=== PATIENT | male | born 1960 | race African-American/Black ===

== ENCOUNTER 2020-03-19 09:46 | Emergency (ER) | payer MEDICAID, SELFPAY ==
[2020-03-19] MEDS ORDERED: AMLODIPINE 10 MG TAB ONE (10:57)
[2020-03-19 10:58] LABS: Absolute Lymphocytes (CBC) 1.4 K/uL (0.7-4.9); Basophils % 1.2 % (0-1.3); Hematocrit 39.7 % (39.6-49.0); Lymphocytes % 21.9 % (15.3-44.8); MPV 9.1 fL (7.6-11.3); RBC Red Blood Cell Count 4.37 M/uL (4.33-5.43)
[2020-03-19 11:03] LABS: Protime INR 0.92
--- NOTE | 2020-03-19 11:22 | RAD REPORT ---
EXAM DESCRIPTION: CT - Head Brain Wo Cont - 03/19/2020 10:40 am CLINICAL HISTORY: HEADACHE COMPARISON: <Comparisons> TECHNIQUE: Axial 5 mm thick images of the head were obtained without IV contrast. All CT scans are performed using dose optimization technique as appropriate and may include automated exposure control or mA/KV adjustment according to patient size. FINDINGS: No intracranial hemorrhage, mass, edema or shift of mid-line structures. No cerebral acute cortical based infarction. No cortical edema or sulcal effacement. No significant atrophy changes ar e identifiable. Ventricles are normal. Arterial and physiologic calcifications are present. In the mclean perior left side lcuy an 8 millimeter rounded low-density area is present. There is patchy decreased attenuation in the central lucy. Mastoid air cells and visualized portions of the paranasal sinuses are clear. No acute bony findings. IMPRESSION: No intracranial hemorrhage is present. No mass, edema or shift of midline structures. Abnormal diminished attenuation is present in the lucy. This is relatively low in density and probab ly chronic ischemic change of the brainstem. This is advanced for the patient's age. Demyelinization or other aggressive process would be lesser in likelihood. Correlation is needed with any focal neurologic deficits. Follow-up contrast MR imaging may be helpfu braeden
--- NOTE | 2020-03-19 11:26 | RAD REPORT ---
EXAM DESCRIPTION: RAD - Chest Single View - 03/19/2020 10:30 am CLINICAL HISTORY: Cough;COPD COMPARISON: None TECHNIQUE: AP portable chest image was obtained 03/19/2020 10:30 am . FINDINGS: No consolidated infiltrates seen. No failure or volume overload. A small 7 mm nodular focu s overlies the lower left chest. This is potentially a nipple shadow. Repeat outpatient PA chest film with nipple marker would be recommended. Heart and vasculature are normal. No measurable pleural effusion and no pneumothorax. No acute bony abnormality seen. No acute aortic findings suspected. IMPRESSION: No acute cardiopulmonary process suspected. Small left base 7 mm nodule may be a nipple shadow and warrants repeat PA chest film with nipple alexy er.
[2020-03-19 11:40] LABS: ALT/SGPT 21 U/L (12-78); AST/SGOT 14 U/L (15-37); Albumin 3.4 g/dL (3.4-5.0); Alkaline Phosphatase 79 U/L (45-117); BUN Blood Urea Nitrogen 14 mg/dL (7-18); Bicarbonate 25 mmol/L (21-32); Bilirubin Direct 0.2 mg/dL (0-0.2); Bilirubin Total 0.4 mg/dL (0.2-1.0); Glucose Level 89 mg/dL (74-106); Magnesium 2.1 mg/dL (1.8-2.4); NT PRO-BNP 933 pg/mL (<125); Protein, Total 7.1 g/dL (6.4-8.2); Sodium Level 143 mmol/L (136-145); Troponin (Emerg Dept Use Only) < 0.02 ng/mL (0.0-0.045)
--- NOTE | 2020-03-19 11:47 | EDPHYS ---
Physician Documentation [facility] Name: Mino Castro Age: 59 yrs Sex: Male : 1960 Arrival Date: 03/19/2020 Time: 09:49 Bed 15 Private MD: ED Physician Flako Grove HPI: 03/19 10:21 This 59 yrs old Black Male presents to ER via Ambulatory with complaints of Medication yocasta Refill. 10:21 The patient complains of pain to the top of head, forehead, left frontal area, left yocasta side of the back of head, left occipital area, left base of the skull, right frontal area, right side of the back of head, right occipital area and right base of the skull. The patient describes the headache as aching. Onset: The symptoms/episode began/occurred 2 day(s) ago. weal ,cough, pierce, htn, hearing voices. Onset: The symptoms/episode began/occurred gradually. Historical: - Allergies: 10:12 No Known Allergies; ca1 - Home Meds: 10:12 None [Active]; ca1 - PMHx: 10:12 None; ca1 - PSHx: 10:12 None; ca1 - Immunization history:: Adult Immunizations up to date. - Social history:: Smoking status: Patient reports the use of cigarette tobacco products, smokes one-half pack cigarettes per day. - Family history:: not pertinent. ROS: 10:22 Constitutional: Negative for fever, chills, and weight loss, Eyes: Negative for injury, yocasta pain, redness, and discharge, ENT: Negative for injury, pain, and discharge, Neck: Negative for injury, pain, and swelling, Cardiovascular: Negative for chest pain, palpitations, and edema, Abdomen/GI: Negative for abdominal pain, nausea, vomiting, diarrhea, and constipation, Back: Negative for injury and pain, : Negative for injury, bleeding, discharge, and swelling, MS/Extremity: Negative for injury and deformity, Skin: Negative for injury, rash, and discoloration, Psych: Negative for depression, anxiety, suicide ideation, homicidal ideation, and hallucinations, Allergy/Immunology: Negative for hives, rash, and allergies, Endocrine: Negative for neck swelling, polydipsia, polyuria, polyphagia, and marked weight changes, Hematologic/Lymphatic: Negative for swollen nodes, abnormal bleeding, and unusual bruising. 10:22 Respiratory: Positive for cough. 10:22 Neuro: Positive for headache. Exam: 10:23 Constitutional: This is a well developed, well nourished patient who is awake, alert, yocasta and in no acute distress. Head/Face: Normocephalic, atraumatic. Eyes: Pupils equal round and reactive to light, extra-ocular motions intact. Lids and lashes normal. Conjunctiva and sclera are non-icteric and not injected. Cornea within normal limits. Periorbital areas with no swelling, redness, or edema. ENT: Nares patent. No nasal discharge, no septal abnormalities noted. Tympanic membranes are normal and external auditory canals are clear. Oropharynx with no redness, swelling, or masses, exudates, or evidence of obstruction, uvula midline. Mucous membranes moist. Neck: Trachea midline, no thyromegaly or masses palpated, and no cervical lymphadenopathy. Supple, full range of motion without nuchal rigidity, or vertebral point tenderness. No Meningismus. Chest/axilla: Normal chest wall appearance and motion. Nontender with no deformity. No lesions are appreciated. Respiratory: Lungs have equal breath sounds bilaterally, clear to auscultation and percussion. No rales, rhonchi or wheezes noted. No increased work of breathing, no retractions or nasal flaring. Abdomen/GI: Soft, non-tender, with normal bowel sounds. No distension or tympany. No guarding or rebound. No evidence of tenderness throughout. Back: No spinal tenderness. No costovertebral tenderness. Full range of motion. Skin: Warm, dry with normal turgor. Normal color with no rashes, no lesions, and no evidence of cellulitis. MS/ Extremity: Pulses equal, no cyanosis. Neurovascular intact. Full, normal range of motion. Neuro: Awake and alert, GCS 15, oriented to person, place, time, and situation. Cranial nerves II-XII grossly intact. Motor strength 5/5 in all extremities. Sensory grossly intact. Cerebellar exam normal. Normal gait. Psych: Awake, alert, with orientation to person, place and time. Behavior, mood, and affect are within normal limits. 10:23 Cardiovascular: Rate: tachycardic, Rhythm: regular, Pulses: Pulses are 4+ in bilateral radial, brachial, femoral, popliteal, posterior tibial and and dorsalis pedis arteries.. Heart sounds: normal, Edema: is not appreciated, JVD: is not appreciated. 11:52 ECG was reviewed by the Attending Physician. yocasta Vital Signs: 10:10 BP 216 / 109; Pulse 85; Resp 15 S; Temp 97.1(TE); Pulse Ox 98% on R/A; Weight 72.12 kg ca1 (R); Height 5 ft. 8 in. (172.72 cm) (R); 10:49 BP 214 / 97; Pulse 69; Resp 15 S; Pulse Ox 100% on R/A; ca1 11:33 BP 197 / 77; Pulse 68; Resp 15 S; Pulse Ox 100% on R/A; ca1 12:16 BP 214 / 92; Pulse 66; Resp 15 S; Pulse Ox 100% on R/A; ca1 12:43 BP 226 / 93; Pulse 68; Resp 18; Pulse Ox 100% on R/A; Pain 0/10; ks7 12:47 Pulse Ox 99% ; Pain 0/10; ks7 12:47 BP 226 / 93; Pulse Ox 99% ; Pain 0/10; ks7 13:45 Pulse Ox 99% ; Pain 0/10; ks7 14:15 BP 205 / 94; Pulse 64; Resp 18; Temp 97.5(TE); Pulse Ox 98% ; Pain 0/10; ks7 14:28 BP 194 / 89; Pulse 58; Resp 18; Temp 97.9(TE); Pulse Ox 99% on R/A; Pain 0/10; ks7 14:34 BP 194 / 89; ks7 14:34 BP 194 / 89; ks7 14:35 BP 194 / 89; ks7 10:10 Body Mass Index 24.18 (72.12 kg, 172.72 cm) ca1 Philip Coma Score: 10:23 Eye Response: spontaneous(4). Verbal Response: oriented(5). Motor Response: obeys yocasta commands(6). Total: 15. MDM: 09:59 Patient medically screened. yocasta 10:23 Differential diagnosis: cluster headache, hypertensive headache, subdural hematoma, yocasta tension headache. Differential Diagnosis altered mental status, sepsis, flu, Bronchitis Upper Respiratory Infection. Data reviewed: vital signs, nurses notes, lab test result(s), EKG, radiologic studies, CT scan, plain films. Data interpreted: panel monitor: rate is 85 beats/min, rhythm is normal sinus rhythm, Pulse oximetry: on room air is 98 %. Test interpretation: by ED physician or midlevel provider: ECG, plain radiologic studies. Counseling: I had a detailed discussion with the patient and/or guardian regarding: the historical points, exam findings, and any diagnostic results supporting the discharge/admit diagnosis, the presence of at least one elevated blood pressure reading (>120/80) during this emergency department visit, lab results, radiology results. 03/19 10:20 Order name: Basic Metabolic Panel [facility] 03/19 10:20 Order name: CBC with Diff [facility] 03/19 10:20 Order name: LFT's 03/19 10:20 Order name: Magnesium; Complete Time: 11:42 [facility] 03/19 10:20 Order name: NT PRO-BNP; Complete Time: 11:42 [facility] 03/19 10:20 Order name: Troponin (emerg Dept Use Only); Complete Time: 11:42 [facility] 03/19 10:20 Order name: Acetaminophen; Complete Time: 11:42 [facility] 03/19 10:20 Order name: ETOH Level; Complete Time: 11:29 [facility] 03/19 10:20 Order name: PT-INR; Complete Time: 11:29 [facility] 03/19 10:20 Order name: Ptt, Activated; Complete Time: 11:29 [facility] 03/19 10:20 Order name: Salicylate; Complete Time: 11:29 [facility] 03/19 10:20 Order name: Urine Drug Screen; Complete Time: 12:46 [facility] 03/19 10:20 Order name: Basic Metabolic Panel; Complete Time: 11:42 [facility] 03/19 10:20 Order name: CBC with Automated Diff; Complete Time: 11:29 [facility] 03/19 10:20 Order name: XRAY Chest (1 view); Complete Time: 11:29 [facility] 03/19 10:20 Order name: EKG; Complete Time: 10:21 [facility] 03/19 10:20 Order name: Cardiac monitoring; Complete Time: 11:14 [facility] 03/19 10:20 Order name: EKG - Nurse/Tech; Complete Time: 11:56 [facility] 03/19 10:20 Order name: IV Saline Lock; Complete Time: 11:14 [facility] 03/19 10:20 Order name: Labs collected and sent; Complete Time: 11: [facility] 03/19 10:20 Order name: O2 Per Protocol; Complete Time: 11:14 [facility] 03/19 10:20 Order name: O2 Sat Monitoring; Complete Time: 11:14 [facility] 03/19 10:20 Order name: Urine Dipstick-Ancillary (obtain specimen); Complete Time: 11:56 [facility] 03/19 10:20 Order name: CT Head Brain wo Cont; Complete Time: 11:29 [facility] 03/19 10:20 Order name: Liver (Hepatic) Function; Complete Time: 11:42 [facility] 03/19 12:08 Order name: Urine Dipstick--Ancillary (enter results); Complete Time: 12:46 eb EC:52 Rate is 66 beats/min. Rhythm is regular. QRS [place] is Normal. MA interval is normal. QRS yocasta interval is normal. QT interval is normal. No Q waves. T waves are Normal. No ST changes noted. Clinical impression: Normal ECG and No evidence of ischemia. Interpreted by me. Reviewed by me. Administered Medications: 11:08 Drug: Norvasc 10 mg Route: PO; ca1 12:47 Follow up: BP 226 / 93; Pulse Ox 99% ; Pain 0/10 Adult ks7 12:16 Drug: Aspirin Chewable Tablet 324 mg Route: PO; ca1 12:47 Follow up: Pulse Ox 99% ; Pain 0/10 Adult ks7 14:35 Follow up: BP 194 / 89 ks7 12:57 Drug: cloNIDine 0.1 mg Route: PO; ks7 13:45 Follow up: Pulse Ox 99% ; Pain 0/10 Adult ks7 14:34 Follow up: BP 194 / 89 ks7 13:45 Drug: Maxzide (37.5 mg-25 mg) 1 caps Route: PO; ks7 14:34 Follow up: BP 194 / 89 ks7 Disposition: 03/19/20 11:47 Discharged to Home. Impression: Essential (primary) hypertension, Headache, Tobacco abuse counseling, Tobacco use, Cocaine abuse, Abuse of non-psychoactive substances. - Condition is Stable. - Discharge Instructions: Stimulant Use Disorder-Cocaine, General Headache Without Cause, Hypertension, Substance Use Disorder, Steps to Quit Smoking, Smoking Hazards, Stroke Prevention, Hypertension, Icsm-[id number], How to Take Your Blood Pressure, Fvep-ww-[id number], Aspirin and Your Heart, General Headache Without Cause, Xrph-uc-Mpna, Managing Your Hypertension. - Prescriptions for Norvasc 5 mg Oral Tablet - take 1 tablet by ORAL route once daily; 20 tablet. Benadryl 25 mg Oral Capsule - take 1 capsule by ORAL route every 6 hours As needed; 30 tablet. Maxzide- 25mg 37.5-25 mg Oral tablet - take 1 tablet by ORAL route once daily; 20 tablet. - Medication Reconciliation Form, Thank You Letter, Antibiotic Education, Prescription Opioid Use form. - Follow up: Private Physician; When: 2 - 3 days; Reason: Recheck today's complaints, Continuance of care, Re-evaluation by your physician. Follow up: Cresencio Augustine MD; When: 2 - 3 days; Reason: Recheck today's complaints, Continuance of care, Re-evaluation by your physician. Follow up: Mino Lara MD; Reason: Recheck today's complaints, Re-evaluation by your physician. - Problem is new. - Symptoms have improved. Signatures: Dispatcher [employer] EDFlako Dinh MD MD cha Acob, Cheryl, RN RN ca1 Songcuan, Kathleen, RN RN ks7 Corrections: (The following items were deleted from the chart) 11:47 11:47 03/19/2020 11:47 Discharged to Home. Impression: Essential (primary) yocasta hypertension; Headache; Tobacco abuse counseling; Tobacco use. Condition is Stable. Forms are Medication Reconciliation Form, Thank You Letter, Antibiotic Education, Prescription Opioid Use. Follow up: Private Physician; When: 2 - 3 days; Reason: Recheck today's complaints, Continuance of care, Re-evaluation by your physician. Problem is new. Symptoms have improved. yocasta 12:48 11:47 03/19/2020 11:47 Discharged to Home. Impression: Essential (primary) yocasta hypertension; Headache; Tobacco abuse counseling; Tobacco use. Condition is Stable. Forms are Medication Reconciliation Form, Thank You Letter, Antibiotic Education, Prescription Opioid Use. Follow up: Private Physician; When: 2 - 3 days; Reason: Recheck today's complaints, Continuance of care, Re-evaluation by your physician. Follow up: Cresencio Augustine; When: 2 - 3 days; Reason: Recheck today's complaints, Continuance of care, Re-evaluation by your physician. Follow up: Mino Lara; Reason: Recheck today's complaints, Re-evaluation by your physician. Problem is new. Symptoms have improved. yocasta 14:36 12:48 03/19/2020 11:47 Discharged to Home. Impression: Essential (primary) ks7 hypertension; Headache; Tobacco abuse counseling; Tobacco use; Cocaine abuse; Abuse of non-psychoactive substances. Condition is Stable. Discharge Instructions: General Headache Without Cause, Hypertension, Steps to Quit Smoking, Smoking Hazards, Stroke Prevention, Hypertension, Ydlh-bk-[id number], How to Take Your Blood Pressure, [id number]-[id number], Aspirin and Your Heart, General Headache Without Cause, Pque-rn-Yspl, Managing Your Hypertension. Prescriptions for Norvasc 5 mg Oral Tablet - take 1 tablet by ORAL route once daily; 20 tablet, Benadryl 25 mg Oral Capsule - take 1 capsule by ORAL route every 6 hours As needed; 30 tablet. and Forms are Medication Reconciliation Form, Thank You Letter, Antibiotic Education, Prescription Opioid Use. Follow up: Private Physician; When: 2 - 3 days; Reason: Recheck today's complaints, Continuance of care, Re-evaluation by your physician. Follow up: Cresencio Augustine; When: 2 - 3 days; Reason: Recheck today's complaints, Continuance of care, Re-evaluation by your physician. Follow up: Mino Lara; Reason: Recheck today's complaints, Re-evaluation by your physician. Problem is new. Symptoms have improved. yocasta
--- NOTE | 2020-03-19 11:47 | ER ---
Nurse's Notes [facility] Name: Mino Castro Age: 59 yrs Sex: Male : 1960 Arrival Date: 03/19/2020 Time: 09:49 Bed 15 Private MD: Diagnosis: Essential (primary) hypertension;Headache;Tobacco abuse counseling;Tobacco use;Cocaine abuse;Abuse of non-psychoactive substances Presentation: 03/19 10:10 Chief complaint: Patient states: I ran out my Cogentin for my headaches x 15 years. ca1 Also have sore throat x 1 week. Denies N/V/dizziness. Coronavirus screen: Patient denies a cough. Patient denies shortness of breath or difficulty breathing. Patient denies measured and/or subjective temperature greater than 100.4F prior to today's visit. Patient denies travel on a cruise ship or to a country the [facility] currently lists as an affected area. Patient denies contact with known and/or suspected case of COVID-19. Ebola Screen: Patient negative for fever greater than or equal to 101.5 degrees Fahrenheit, and additional compatible Ebola Virus Disease symptoms Patient denies exposure to infectious person. Patient denies travel to an Ebola-affected area in the 21 days before illness onset. No symptoms or risks identified at this time. Initial Sepsis Screen: Does the patient meet any 2 criteria? No. Patient's initial sepsis screen is negative. Does the patient have a suspected source of infection? No. Patient's initial sepsis screen is negative. Risk Assessment: Do you want to hurt yourself or someone else? Patient reports no desire to harm self or others. Onset of symptoms was March 19, 2020. 10:10 Method Of Arrival: Ambulatory ca1 10:10 Acuity: VANDANA 4 ca1 10:31 Acuity: VANDANA 3 ca1 Triage Assessment: 10:12 General: Appears in no apparent distress. comfortable, Behavior is calm, cooperative, ca1 appropriate for age. Pain: Denies pain. EENT: No deficits noted. Neuro: Level of Consciousness is awake, alert, obeys commands, Oriented to person, place, time, situation. Cardiovascular: Heart tones S1 S2 present Capillary refill < 3 seconds Patient's skin is warm and dry. Respiratory: Airway is patent Respiratory effort is even, unlabored, Respiratory pattern is regular, symmetrical, Breath sounds are clear bilaterally. GI: Abdomen is flat, non-distended, Bowel sounds present X 4 quads. Abd is soft and non tender X 4 quads. : No signs and/or symptoms were reported regarding the genitourinary system. Derm: Skin is intact, is healthy with good turgor, Skin is pink, warm \T\ dry. Musculoskeletal: Circulation, motion, and sensation intact. Capillary refill < 3 seconds. Historical: - Allergies: 10:12 No Known Allergies; ca1 - Home Meds: 10:12 None [Active]; ca1 - PMHx: 10:12 None; ca1 - PSHx: 10:12 None; ca1 - Immunization history:: Adult Immunizations up to date. - Social history:: Smoking status: Patient reports the use of cigarette tobacco products, smokes one-half pack cigarettes per day. - Family history:: not pertinent. Screenin:13 Abuse screen: Denies threats or abuse. Denies injuries from another. Nutritional ca1 screening: No deficits noted. Tuberculosis screening: No symptoms or risk factors identified. Fall Risk None identified. Assessment: 10:13 Reassessment: see triage assessment. ca1 11:00 Reassessment: Patient appears in no apparent distress at this time. Patient and/or ca1 family updated on plan of care and expected duration. Pain level reassessed. Patient is alert, oriented x 3, equal unlabored respirations, skin warm/dry/pink. 11:56 Reassessment: Patient appears in no apparent distress at this time. Patient and/or ca1 family updated on plan of care and expected duration. Pain level reassessed. Patient is alert, oriented x 3, equal unlabored respirations, skin warm/dry/pink. 12:44 Pain: Denies pain. ks7 13:34 Reassessment: faxed med request to Pharmacy. not available [place] waiting for [facility] to bring med to ED. 13:46 Reassessment: pt ambulated to bathroom independently, denies dizziness. denies pain. ks7 steady on feet. Vital Signs: 10:10 BP 216 / 109; Pulse 85; Resp 15 S; Temp 97.1(TE); Pulse Ox 98% on R/A; Weight 72.12 kg ca1 (R); Height 5 ft. 8 in. (172.72 cm) (R); 10:49 BP 214 / 97; Pulse 69; Resp 15 S; Pulse Ox 100% on R/A; ca1 11:33 BP 197 / 77; Pulse 68; Resp 15 S; Pulse Ox 100% on R/A; ca1 12:16 BP 214 / 92; Pulse 66; Resp 15 S; Pulse Ox 100% on R/A; ca1 12:43 BP 226 / 93; Pulse 68; Resp 18; Pulse Ox 100% on R/A; Pain 0/10; ks7 12:47 Pulse Ox 99% ; Pain 0/10; ks7 12:47 BP 226 / 93; Pulse Ox 99% ; Pain 0/10; ks7 13:45 Pulse Ox 99% ; Pain 0/10; ks7 14:15 BP 205 / 94; Pulse 64; Resp 18; Temp 97.5(TE); Pulse Ox 98% ; Pain 0/10; ks7 14:28 BP 194 / 89; Pulse 58; Resp 18; Temp 97.9(TE); Pulse Ox 99% on R/A; Pain 0/10; ks7 14:34 BP 194 / 89; ks7 14:34 BP 194 / 89; ks7 14:35 BP 194 / 89; ks7 10:10 Body Mass Index 24.18 (72.12 kg, 172.72 cm) ca1 Philip Coma Score: 10:23 Eye Response: spontaneous(4). Verbal Response: oriented(5). Motor Response: obeys yocasta commands(6). Total: 15. ED Course: 09:49 Patient arrived in ED. as 09:54 Flako Grove MD is Attending Physician. yocasta 09:58 Allyssa Camarillo, ALYSIA is Primary Nurse. ca1 10:12 Triage completed. ca1 10:12 Arm band placed on right wrist. ca1 10:13 Patient has correct armband on for positive identification. Bed in low position. Call ca1 light in reach. Side rails up X 1. Pulse ox on. NIBP on. 10:13 No provider procedures requiring assistance completed. ca1 10:31 XRAY Chest (1 view) In Process Unspecified. EDMS 10:39 CT completed. Patient tolerated procedure well. Patient moved back from CT. bq 10:40 CT Head Brain wo Cont In Process Unspecified. EDMS 10:50 Initial lab(s) drawn, by me, sent to lab. Inserted saline lock: 22 gauge in right ca1 antecubital area, using aseptic technique. Blood collected. 11:47 Cresencio Augustine MD is Referral Physician. yocasta 11:47 Mino Lara MD is Referral Physician. yocasta 12:17 Report given to ALYSIA Charles. ca1 12:44 ED physician to see patient. ED MD reassessed pt. will add another BP med PO before pt ks7 dc'd. 12:48 Basic Metabolic Panel Sent. ks7 12:48 CBC with Diff Sent. ks7 12:48 LFT's Sent. ks7 14:35 IV discontinued, intact, bleeding controlled, No redness/swelling at site. Pressure ks7 dressing applied. Administered Medications: 11:08 Drug: Norvasc 10 mg Route: PO; ca1 12:47 Follow up: BP 226 / 93; Pulse Ox 99% ; Pain 0/10 Adult ks7 12:16 Drug: Aspirin Chewable Tablet 324 mg Route: PO; ca1 12:47 Follow up: Pulse Ox 99% ; Pain 0/10 Adult ks7 14:35 Follow up: BP 194 / 89 ks7 12:57 Drug: cloNIDine 0.1 mg Route: PO; ks7 13:45 Follow up: Pulse Ox 99% ; Pain 0/10 Adult ks7 14:34 Follow up: BP 194 / 89 ks7 13:45 Drug: Maxzide (37.5 mg-25 mg) 1 caps Route: PO; ks7 14:34 Follow up: BP 194 / 89 ks7 Outcome: 11:47 Discharge ordered by . yocasta 14:35 Discharged to home ambulatory. ks7 14:35 Condition: stable 14:35 Discharge instructions given to Instructed on Demonstrated understanding of Prescriptions given X 3. 14:36 Patient left the ED. ks7 Signatures: Dispatcher [employer] EDMS Flako Grove MD MD cha Quilty, Betty bq Martinez, Amelia as Acob, Cheryl, RN RN ca1 Araceli Tejada RN RN ks7
[2020-03-19 12:08] LABS: Barbiturates NEGATIVE (NEGATIVE); Benzodiazepines NEGATIVE (NEGATIVE); Cocaine POSITIVE (NEGATIVE); METHAMPHETAM NEGATIVE (NEGATIVE); Methadone NEGATIVE (NEGATIVE); Opiates NEGATIVE (NEGATIVE); Phencyclidine NEGATIVE (NEGATIVE); THC Cannibis POSITIVE (NEGATIVE)
[2020-03-19 12:22] LABS: Urine Blood NEGATIVE (NEG); Urine Glucose NEGATIVE (NEG); Urine Protein NEGATIVE (NEG); Urine pH 6.5 (5.0-7.0)
[2020-03-19] MEDS ORDERED: ASPIRIN 81 MG CHEWABLE TABLET ONE (12:22)
[2020-03-19] MEDS ORDERED: cloNIDine HCL 0.1 MG TAB ONE (13:05)
[2020-03-19] MEDS ORDERED: MAXZIDE (HCTZ 25/TRIAMTERENE 37.5MG) TAB ONE (13:52)
[2020-03-19 14:53] VITALS: BP 194/89; TEMP 97.9; O2SAT 99
--- NOTE | 2020-03-20 07:27 | EKG ---
Test Date: 2020-03-19 Test Time: 11:39:49 Labor Relations Teacher: GEOVANY MEASUREMENT RESULTS: Intervals: Rate: 66 AR: 130 QRSD: 102 QT: 452 QTc: 473 [place]: P: 23 AR: 130 QRS: 72 T: 69 INTERPRETIVE STATEMENTS: Normal sinus rhythm Voltage criteria for left ventricular hypertrophy Cannot rule out Septal infarct, age undetermined Abnormal ECG No previous ECG available for comparison Electronically Signed On 03-20-20 07:25:05 CDT by Gerson Gay
== END 2020-03-19 14:36 | disposition home or self-care (01) ==
LOC: ER 09:46
DX: I10 Essential (primary) hypertension (principal); F14.10 Cocaine abuse, uncomplicated; F55.8 Abuse of other non-psychoactive substances; Z71.6 Tobacco abuse counseling
CPT/HCPCS: 36415; 70450; 71045; 80048; 80076; 80307; 80320; 80329; 81003; 83735; 83880; 84484; 85025; 85610; 85730; 93005; 99284

== ENCOUNTER 2020-10-04 11:37 | Inpatient (IN) | payer MEDICAID ==
--- NOTE | 2020-10-04 12:26 | RAD REPORT ---
EXAM DESCRIPTION: CT - Head Brain Wo Cont - 10/04/2020 12:15 pm CLINICAL HISTORY: Alteration of awareness/confusion COMPARISON: February 2020 TECHNIQUE: Computed axial tomography of the head was obtained. IV contrast was not requested. All CT scans are performed using dose optimization technique as appropriate and may include automated exposure control or mA/KV adjustment according to patient size. FINDINGS: An intracranial bleed is not seen . The ventricles are normal in caliber. No extra-axial fluid collection is noted. Small low-density area within the lucy probably old infarct ion. Mild low-density areas within periventricular, deep and subcortical white matter likely represent isc hemic changes secondary to small vessel disease. Fluid within the sinuses/ mastoids is not seen. IMPRESSION: No acute intracranial abnormality is seen. If patient's symptoms persist MRI of the bra in would be recommended.
[2020-10-04 12:52] LABS: Barbiturates NEGATIVE (NEGATIVE); Benzodiazepines NEGATIVE (NEGATIVE); Cocaine POSITIVE (NEGATIVE); METHAMPHETAM NEGATIVE (NEGATIVE); Methadone NEGATIVE (NEGATIVE); Opiates NEGATIVE (NEGATIVE); Phencyclidine NEGATIVE (NEGATIVE); THC Cannibis POSITIVE (NEGATIVE)
[2020-10-04 13:01] LABS: Urine Blood NEGATIVE (NEG); Urine Glucose NEGATIVE (NEG); Urine Protein 2+ (NEG)
[2020-10-04 13:25] LABS: Basophils % 0.2 % (0-1.3); Hematocrit 39.3 % (39.6-49.0); Lymphocytes % 30.5 % (15.3-44.8); RBC Red Blood Cell Count 4.37 M/uL (4.33-5.43)
[2020-10-04 13:50] LABS: Protime INR 0.97
[2020-10-04 13:53] LABS: ALT/SGPT 16 U/L (12-78); AST/SGOT 11 U/L (15-37); BUN Blood Urea Nitrogen 13 mg/dL (7-18); Bicarbonate 27 mmol/L (21-32); Glucose Level 97 mg/dL (74-106); Potassium 3.9 mmol/L (3.5-5.1); Sodium Level 139 mmol/L (136-145)
[2020-10-04 13:54] LABS: Albumin 3.8 g/dL (3.4-5.0); Alkaline Phosphatase 81 U/L (45-117); Bilirubin Direct 0.1 mg/dL (0-0.2); Bilirubin Total 0.3 mg/dL (0.2-1.0); Protein, Total 7.8 g/dL (6.4-8.2)
--- NOTE | 2020-10-04 14:14 | ER ---
Nurse's Notes [facility] Name: Mino Castro Age: 60 yrs Sex: Male : 1960 Arrival Date: 10/04/2020 Time: 11:43 Bed 15 Private MD: Diagnosis: Cocaine use, unspecified with intoxication;Cannabis abuse with intoxication;Essential (primary) hypertension Presentation: 10/04 11:43 Chief complaint: EMS states: EMS called by family stating pt was not talking or ph walking, when EMS arrived pt was walking and talking but "not making much sense," hx of schizophrenia and HTN, has not been taking meds x 4 days, pt's sister called "psychiatrist" Dr Kaufman who told EMS to call law enforcement and mental health deputy to force pt to be transported to hospital, pt denies SI or HI, BP elevated at 213/100, pt normally takes lisinopril, amlodipine and Seroquel. Coronavirus screen: Client denies travel out of the [place] in the last 14 days. Ebola Screen: No symptoms or risks identified at this time. Initial Sepsis Screen: Does the patient meet any 2 criteria? No. Patient's initial sepsis screen is negative. Does the patient have a suspected source of infection? No. Patient's initial sepsis screen is negative. Risk Assessment: Do you want to hurt yourself or someone else? Patient reports no desire to harm self or others. Onset of symptoms was October 04, 2020. 11:43 Method Of Arrival: EMS: [facility] ph 11:43 Acuity: VANDANA 2 ph Historical: - Allergies: 12:04 No Known Allergies; ph - Home Meds: 12:04 Seroquel Oral [Active]; amlodipine oral [Active]; Lisinopril Oral [Active]; ph - PMHx: 12:04 Schizophrenia; Hypertension; ph - Immunization history:: Adult Immunizations unknown. - Social history:: Smoking status: unknown. Screenin:02 Abuse screen: Denies threats or abuse. Denies injuries from another. Nutritional ph screening: No deficits noted. Tuberculosis screening: No symptoms or risk factors identified. Fall Risk None identified. Assessment: 12:26 General: Appears in no apparent distress. comfortable, Behavior is calm, cooperative. vg1 Pain: Denies pain. Neuro: Level of Consciousness is awake, alert, obeys commands, Oriented to person, place. Cardiovascular: Patient's skin is warm and dry. Respiratory: Airway is patent Respiratory effort is even, unlabored, Respiratory pattern is regular, symmetrical. GI: No signs and/or symptoms were reported involving the gastrointestinal system. : No signs and/or symptoms were reported regarding the genitourinary system. EENT: No signs and/or symptoms were reported regarding the EENT system. Derm: Skin is intact, is healthy with good turgor. Musculoskeletal: Circulation, motion, and sensation intact. 13:19 Reassessment: Patient appears in no apparent distress at this time. No changes from vg1 previously documented assessment. Patient is alert, oriented x 3, equal unlabored respirations, skin warm/dry/pink. 14:23 Reassessment: Sister (ENA) Bhargavi Mondragon [phone]. hb 15:05 Reassessment: Patient appears in no apparent distress at this time. Patient and/or vg1 family updated on plan of care and expected duration. Pain level reassessed. Patient is alert, oriented x 3, equal unlabored respirations, skin warm/dry/pink. Patient denies pain at this time. Vital Signs: 11:43 BP 204 / 92; Pulse 74; Resp 18; Temp 97.9; Pulse Ox 100% on R/A; Weight 72.57 kg; ph 12:27 BP 192 / 105; Pulse 73; Resp 16; Pulse Ox 100% on R/A; vg1 13:15 BP 207 / 86; Pulse 65; Resp 16; Pulse Ox 98% on R/A; vg1 14:00 BP 135 / 111; Pulse 73; Resp 16; Pulse Ox 99% on R/A; vg1 14:30 BP 195 / 105; Pulse 68; Resp 16; Pulse Ox 100% on R/A; vg1 15:00 BP 189 / 92; Pulse 80; Resp 20; Pulse Ox 98% on R/A; vg1 ED Course: 11:43 Patient arrived in ED. ph 11:46 Abdiaziz Becerra NP is PHCP. pm1 11:46 Flako Grove MD is Attending Physician. pm1 12:02 Triage completed. ph 12:02 Jerrica Gaspar, RN is Primary Nurse. vg1 12:02 Arm band placed on. ph 12:03 Patient has correct armband on for positive identification. Bed in low position. Call ph light in reach. Side rails up X 1. Pulse ox on. NIBP on. Door closed. Noise minimized. 12:[address] via wheelchair. vg1 12:15 CT Head Brain wo Cont In Process Unspecified. EDMS 12:15 Urine collected: clean catch specimen, clear, jose colored, Legal drug screen obtained jp3 per protocol. 13:14 Missed attempt(s): 22 gauge in left antecubital area. vg1 13:21 Initial lab(s) drawn, by pa, sent to lab. Inserted saline lock: 22 gauge in left jp3 forearm, using aseptic technique. Blood collected. Patient maintains SpO2 saturation greater than 95% on room air. 14:13 Scottie Kaufman MD is Hospitalizing Provider. pm1 10/05 00:02 Report given to Vish Lopes RN. vg1 00:05 Primary Nurse role handed off by Jerrica Gaspar RN sf 00:05 Vish Monaco RN is Primary Nurse. sf 03:01 Acetaminophen Sent. sf 03:01 Basic Metabolic Panel Sent. sf 03:01 CBC with Diff Sent. sf 03:02 Basic Metabolic Panel Sent. sf 03:02 CBC with Automated Diff Sent. sf 03:02 Basic Metabolic Panel Sent. sf 03:02 CBC with Automated Diff Sent. sf 03:03 COVID-19 : Document "Date of Symptom Onset" if Symptomatic. Sent. sf 07:05 Report given to ALYSIA Obregon. sf Administered Medications: 02 14:19 Drug: Ativan 1 mg Route: IVP; Site: right forearm; hb 15:02 Follow up: Response: No adverse reaction vg1 14:28 Drug: hydrALAZINE 10 mg Route: IV; Rate: calculated rate; Site: left wrist; vg1 15:03 Follow up: Response: No adverse reaction; IV Status: Completed infusion vg1 15:03 Drug: Catapres 0.1 mg/24 hr 1 patches Route: Transdermal; Site: affected area; vg1 Outcome: 14:13 Decision to Hospitalize by Provider. pm1 10/05 07:55 Patient left the ED. bp Signatures: Dispatcher [employer] EDSC Belem Dave RN RN ph Abdiaziz Becerra, PHARMACEUTICAL SALESPERSON PHARMACEUTICAL SALESPERSON pm1 Vane Gay, RN RN hb Sabas Tinajero, RN RN bp Raffy Forrest jp3 Jerrica Gaspar, RN RN vg1 Vish Monaco RN RN sf
--- NOTE | 2020-10-04 14:14 | EDPHYS ---
Physician Documentation [facility] Name: Mino Castro Age: 60 yrs Sex: Male : 1960 Arrival Date: 10/04/2020 Time: 11:43 Bed 15 Private MD: ED Physician Flako Grove HPI: 10/04 12:32 This 60 yrs old Black Male presents to ER via EMS with complaints of AMS, Blood pm1 Pressure Problem. 12:32 The patient presents with confusion, Not making sense when he talks. Elevated blood pm1 pressure. Patient has not taken his medications for schizophrenia and blood pressure since . Onset: The symptoms/episode began/occurred 5 day(s) ago. Possible causes: noncompliance with medications. Associated signs and symptoms: The patient has no apparent associated signs or symptoms, Pertinent negatives: abdominal pain, chest pain, diarrhea, dizziness, headache, nausea, vomiting, weakness. Current symptoms: In the emergency department the patient's symptoms are unchanged from the initial presentation. Patient's baseline: Neuro: alert and fully oriented, Motor: no deficits, Ambulation: walks without assistance, Speech: normal, Sister reports that he is usually calm and quiet when he takes his medications. His blood pressure is usually always elevated at this level. The patient has experienced similar episodes in the past, a few times. Historical: - Allergies: 12:04 No Known Allergies; ph - Home Meds: 12:04 Seroquel Oral [Active]; amlodipine oral [Active]; Lisinopril Oral [Active]; ph - PMHx: 12:04 Schizophrenia; Hypertension; ph - Immunization history:: Adult Immunizations unknown. - Social history:: Smoking status: unknown. ROS: 12:32 Constitutional: Negative for fever, chills, and weight loss, Cardiovascular: Negative pm1 for chest pain, palpitations, and edema, Respiratory: Negative for shortness of breath, cough, wheezing, and pleuritic chest pain, Abdomen/GI: Negative for abdominal pain, nausea, vomiting, diarrhea, and constipation, Back: Negative for injury and pain, MS/Extremity: Negative for injury and deformity, Skin: Negative for injury, rash, and discoloration. 12:32 Neuro: Positive for altered mental status, Negative for headache, weakness. Exam: 12:32 Constitutional: This is a well developed, well nourished patient who is awake, alert, pm1 and in no acute distress. Head/Face: Normocephalic, atraumatic. Chest/axilla: Normal chest wall appearance and motion. Nontender with no deformity. No lesions are appreciated. 12:32 Back: No spinal tenderness. No costovertebral tenderness. Full range of motion. Skin: Warm, dry with normal turgor. Normal color with no rashes, no lesions, and no evidence of cellulitis. MS/ Extremity: Pulses equal, no cyanosis. Neurovascular intact. Full, normal range of motion. 12:32 Cardiovascular: Exam negative for acute changes, Rate: normal, Rhythm: regular, Pulses: no pulse deficits are appreciated, Heart sounds: normal, Edema: is not appreciated. 12:32 Respiratory: Exam negative for acute changes, respiratory distress, shortness of breath, Breath sounds: are clear throughout. 12:32 Neuro: Exam negative for acute changes, Orientation: is normal, Mentation: is normal, Motor: is normal, moves all fours. 12:32 Psych: Behavior/mood is Agitated. Affect is animated, Oriented to person, place, time, Patient has no thoughts/intents to harm self or others. Vital Signs: 11:43 BP 204 / 92; Pulse 74; Resp 18; Temp 97.9; Pulse Ox 100% on R/A; Weight 72.57 kg; ph 12:27 BP 192 / 105; Pulse 73; Resp 16; Pulse Ox 100% on R/A; vg1 13:15 BP 207 / 86; Pulse 65; Resp 16; Pulse Ox 98% on R/A; vg1 14:00 BP 135 / 111; Pulse 73; Resp 16; Pulse Ox 99% on R/A; vg1 14:30 BP 195 / 105; Pulse 68; Resp 16; Pulse Ox 100% on R/A; vg1 15:00 BP 189 / 92; Pulse 80; Resp 20; Pulse Ox 98% on R/A; vg1 MDM: 12:01 Patient medically screened. pm1 14:03 Physician consultation: Scottie Kaufman MD was called at 14:03, was contacted at 14:03, pm1 regarding admission, patient's condition, and will see patient would like medications started, Librium, hydralazine, catapres 0.1 mg patch. Blood pressure systolic goal 190. 14:06 Data reviewed: vital signs. Data interpreted: Pulse oximetry: on room air is 98 %. pm1 Interpretation: normal. 16:32 Physician consultation: Scottie Kaufman MD requested patient to placed in the ICU. pm1 10/04 12:03 Order name: Acetaminophen pm1 10/04 12:03 Order name: Basic Metabolic Panel pm1 10/04 12:03 Order name: CBC with Diff pm1 10/04 12:03 Order name: ETOH Level; Complete Time: 13:57 pm1 10/04 12:03 Order name: Hepatic Function; Complete Time: 13:57 pm1 10/04 12:03 Order name: PT-INR; Complete Time: 13:57 pm1 10/04 12:03 Order name: Ptt, Activated; Complete Time: 13:57 pm1 10/04 12:03 Order name: Salicylate; Complete Time: 14:00 pm1 10/04 12:03 Order name: Urine Drug Screen; Complete Time: 12:57 pm1 10/04 12:03 Order name: Acetaminophen Level; Complete Time: 13:57 EDMS 10/04 12:03 Order name: Basic Metabolic Panel; Complete Time: 13:57 EDMS 10/04 12:03 Order name: CBC with Automated Diff; Complete Time: 13:38 EDMS 10/04 12:31 Order name: Urine Dipstick--Ancillary (enter results); Complete Time: 13:02 bd 10/04 14:21 Order name: COVID-19 : Document "Date of Symptom Onset" if Symptomatic. pm1 10/04 12:02 Order name: CT Head Brain wo Cont; Complete Time: 12:32 pm1 10/04 12:03 Order name: EKG; Complete Time: 12:04 pm1 10/04 12:03 Order name: EKG - Nurse/Tech; Complete Time: 13:05 pm1 10/04 12:03 Order name: IV Saline Lock; Complete Time: 13:14 pm1 10/04 12:03 Order name: Labs collected and sent; Complete Time: 13:14 pm1 10/04 12:03 Order name: Urine Dipstick-Ancillary (obtain specimen); Complete Time: 12:28 pm1 10/04 14:22 Order name: CORONAVIRUS EDMS 10/04 14:25 Order name: Heart Healthy; Complete Time: 03:02 EDMS 10/04 14:25 Order name: Basic Metabolic Panel EDMS 10/04 14:25 Order name: Basic Metabolic Panel EDMS 10/04 14:25 Order name: CBC with Automated Diff EDMS 10/04 14:25 Order name: CBC with Automated Diff EDMS 10/04 16:47 Order name: SARS-COV-2 RT PCR; Complete Time: 17:59 EDMS Administered Medications: 14:19 Drug: Ativan 1 mg Route: IVP; Site: right forearm; hb 15:02 Follow up: Response: No adverse reaction vg1 14:28 Drug: hydrALAZINE 10 mg Route: IV; Rate: calculated rate; Site: left wrist; vg1 15:03 Follow up: Response: No adverse reaction; IV Status: Completed infusion vg1 15:03 Drug: Catapres 0.1 mg/24 hr 1 patches Route: Transdermal; Site: affected area; vg1 Disposition: 10/05 17:36 Co-signature as Attending Physician, Flako Grove MD I agree with the assessment and yocasta plan of care. Disposition: 10/04/20 14:13 Hospitalization ordered by Scottie Kaufman for Inpatient Admission. Preliminary diagnosis are Cocaine use, unspecified with intoxication, Cannabis abuse with intoxication, Essential (primary) hypertension. - Bed requested for [facility] ER HOLD. - Status is Inpatient Admission. bp - Condition is Stable. - Problem is new. - Symptoms have improved. Signatures: Dispatcher [employer] EDDE Flako Grove MD MD cha Hall, Patricia, RN RN ph Garcia, Cindy, Abdiaizz Collazo RN, NP DIE SINKING MACHINE OPERATOR pm1 Vane Gay RN RN hb Peltier, Brian, RN RN bp Garcia, Victoria, RN RN vg1 Corrections: (The following items were deleted from the chart) 10/04 14:18 14:13 Hospitalization Ordered by Scottie Kaufman MD for Inpatient Admission. Preliminary pm1 diagnosis is Cocaine use, unspecified with intoxication; Cannabis abuse with intoxication. Bed requested for Telemetry/MedSurg (Inpatient). Status is Inpatient Admission. Condition is Stable. Problem is new. Symptoms have improved. pm1 14:18 14:18 10/04/2020 14:13 Hospitalization Ordered by Scottie Kaufman MD for Inpatient pm1 Admission. Preliminary diagnosis is Cocaine use, unspecified with intoxication; Cannabis abuse with intoxication; Essential (primary) hypertension; Patient's other noncompliance with medication regimen. Bed requested for Telemetry/MedSurg (Inpatient). Status is Inpatient Admission. Condition is Stable. Problem is new. Symptoms have improved. pm1 16:33 14:18 10/04/2020 14:13 Hospitalization Ordered by Scottie Kaufman MD for Inpatient pm1 Admission. Preliminary diagnosis is Cocaine use, unspecified with intoxication; Cannabis abuse with intoxication; Essential (primary) hypertension. Bed requested for Telemetry/MedSurg (Inpatient). Status is Inpatient Admission. Condition is Stable. Problem is new. Symptoms have improved. pm1 20:17 16:33 10/04/2020 14:13 Hospitalization Ordered by Scottie Kaufman MD for Inpatient cg Admission. Preliminary diagnosis is Cocaine use, unspecified with intoxication; Cannabis abuse with intoxication; Essential (primary) hypertension. Bed requested for Intensive Care Unit. Status is Inpatient Admission. Condition is Stable. Problem is new. Symptoms have improved. pm1 10/05 07:55 10/04 20:17 10/04/2020 14:13 Hospitalization Ordered by Scottie Kaufman MD for Inpatient bp Admission. Preliminary diagnosis is Cocaine use, unspecified with intoxication; Cannabis abuse with intoxication; Essential (primary) hypertension. Bed requested for [facility] ER HOLD. Status is Inpatient Admission. Condition is Stable. Problem is new. Symptoms have improved. cg
[2020-10-04] MEDS ORDERED: LORazepam 2 MG/ML VIAL ONE (14:31)
[2020-10-04] MEDS ORDERED: HYDRALAZINE HCL 20 MG/ML VIAL ONE (14:40)
[2020-10-04 14:45] VITALS: O2SAT 98
[2020-10-04] MEDS ORDERED: CLONIDINE 0.1 MG/PATCH TD ONE (14:45)
[2020-10-04 15:46] VITALS: BMI 25.0
[2020-10-04] MEDS ORDERED: HYDRALAZINE HCL 20 MG/ML VIAL IV PRN (16:46)
[2020-10-04] MEDS ORDERED: LORazepam 2 MG/ML VIAL IV PRN (16:46)
--- NOTE | 2020-10-04 16:56 | P.HP ---
Certification for Inpatient Patient admitted to: Observation With expected LOS: <2 Midnights Patient will require the following post-hospital care: Custodial Practitioner: I am a practitioner with admitting privileges, knowledge of patient current condition, hospital course, and medical plan of care. Services: Services provided to patient in accordance with Admission requirements found in Title 42 Section 412.3 of the Code of Federal Regulations Patient History Date of Service: 10/04/20 Primary Care Provider: Shae Reason for admission: delirium History of Present Illness: Called this afternoon. The patients sister was calling. Patient stopped taking his medications. EMS was present. States that the patient was not responding. The EMS was waiting for the [facility] to bring him to the Hospital. The sister states he stopped taking his medications on . He has not been very responsive. Becoming more agitated. This information was given to the ER ABRAHAM Freed. The patient was brought to the ER. Found to be positive for cocaine and marijuana. His sister had left the ER at that time. We do not know how much or how long he has been indulging. The patient denies this. States he was out of his quetinapine. His blood pressure was elevated. He was not able to give a history he is very agitated. Allergies No Known Allergies Allergy (Unverified 06/11/17 22:31) Home Medications: Amlodipine Besylate 1 10/04/20 Lisinopril [Zestril] 1 10/04/20 Quetiapine [Seroquel*] 1 10/04/20 - Social History Smoking Status: Current every day smoker Alcohol use: No CD- Drugs: Yes Caffeine use: Yes Place of Residence: Home Review of Systems is unable to be obtained Physical Examination - Vital Signs Blood Pressure: 158/91 Pulse: 75 Respirations: 16 Pulse Ox (%): 99 - Physical Exam General: Acute distress, Delirious HEENT: Atraumatic, PERRLA, Mucous membr. moist/pink, EOMI, Sclerae nonicteric Neck: Supple, 2+ carotid pulse no bruit, No LAD, Without JVD or thyroid abnormality Respiratory: Clear to auscultation bilaterally, Normal air movement Cardiovascular: Normal S1 S2, Irregular heart rate/rhythm (tachycardia) Gastrointestinal: Normal bowel sounds, No tenderness Musculoskeletal: No tenderness Integumentary: No rashes Neurological: Normal gait, Normal speech, Normal strength at 5/5 x4 extr, Normal tone, Normal affect Lymphatics: No axilla or inguinal lymphadenopathy - Studies Laboratory Data (last 24 hrs) 10/04/20 13:14: PT 11.1, INR 0.97, APTT 33.6 10/04/20 13:14: WBC 6.60, Hgb 13.0 L, Hct 39.3 L, Plt Count 212 10/04/20 13:14: Sodium 139, Potassium 3.9, BUN 13, Creatinine 1.18, Glucose 97, Total Bilirubin 0.3, AST 11 L, ALT 16, Alkaline Phosphatase 81 Assessment and Plan - Problems (Diagnosis) (1) Schizophrenia Current Visit: Yes Status: Acute Plan: Patient is off his medications. Will need to get him a bit more stable and restart the quetipin in the morning. Will keep him in the ICU. He is not stable for the floors. The patient has already tried to wander out of the ER more than once. Unlikely to be able to manage him on the floors. Qualifiers: Schizophrenia type: disorganized schizophrenia Qualified Code(s): F20.1 - Disorganized schizophrenia (2) Cocaine use Current Visit: Yes Status: Acute Plan: He has been positive before. Will start him on ativan and fluids. Will continue to monitor his vitals. once he is more stable will start him on his regular medications. (3) Hypertensive urgency Current Visit: Yes Status: Acute Plan: will control with clonidine tts and iv hydralazine. Restart orals when he is more stable. Discharge Plan: Home Plan to discharge in: Greater than 2 days - Advance Directives Does patient have a Living Will: No Does patient have a Durable POA for Healthcare: No - Code Status/Comfort Care Code Status Assessed: No Code Status: Full Code Critical Care: Yes Time Spent Managing Pts Care (In Minutes): 45
[2020-10-04] MEDS ORDERED: D5 0.45 NS 1,000 ML IV SCH (17:00)
[2020-10-04] MEDS ORDERED: ENOXAPARIN 40 MG/0.4 ML SQ SCH (17:00)
[2020-10-04] MEDS ORDERED: THIAMINE 200 MG/2 ML INJ IVP ONE (17:00)
[2020-10-04] MEDS ORDERED: D5 0.45 NS 1,000 ML IV ONE (22:03)
[2020-10-04] MEDS ORDERED: THIAMINE 200 MG/2 ML INJ ONE (22:04)
[2020-10-04] MEDS ORDERED: ENOXAPARIN 40 MG/0.4 ML SQ ONE (22:05)
[2020-10-05 04:34] VITALS: BP 154/91; TEMP 98.8
[2020-10-05 05:43] LABS: Absolute Lymphocytes (CBC) 1.9 K/uL (0.7-4.9); Basophils % 2.4 % (0-1.3); Lymphocytes % 40.8 % (15.3-44.8); MPV 8.8 fL (7.6-11.3); RBC Red Blood Cell Count 3.93 M/uL (4.33-5.43)
[2020-10-05 05:50] LABS: Potassium 3.9 mmol/L (3.5-5.1)
[2020-10-05] MEDS ORDERED: PANTOPRAZOLE 40MG TABLET PO SCH (07:30)
--- OUTSIDE RECORDS SUMMARY | 2020-10-05 08:31 | XMS REPORT | Continuity of Care Document ---
:1960 Author Organization [facility] t Address [address] [place] [address] [address] [place] [address] Care Team Providers Name Role Phone Unavailable Unavailable Unavailable Problems This patient has no known problems. Allergies, Adverse Reactions, Alerts This patient has no known allergies or adverse reactions. Medications This patient has no known medications. Procedures This patient has no known procedures. Results This patient has no known results.
--- NOTE | 2020-10-05 08:59 | P.DS ---
Admission Date: 10/04/20 Discharge Date: 10/05/20 Primary Care Provider: Shae Disposition: AMA-LEFT AGAINST MEDICAL ADVIC Reason for Admission: delirium - Problems (1) Schizophrenia Status: Acute Qualifiers: Schizophrenia type: disorganized schizophrenia Qualified Code(s): F20.1 - Disorganized schizophrenia (2) Cocaine use Status: Acute (3) Hypertensive urgency Status: Acute Brief History of Present Illness: Called this afternoon. The patients sister was calling. Patient stopped taking his medications. EMS was present. States that the patient was not responding. The EMS was waiting for the [facility] to bring him to the Hospital. The sister states he stopped taking his medications on . He has not been very responsive. Becoming more agitated. This information was given to the ER ABRAHAM Freed. The patient was brought to the ER. Found to be positive for cocaine and marijuana. His sister had left the ER at that time. We do not know how much or how long he has been indulging. The patient denies this. States he was out of his quetinapine. His blood pressure was elevated. He was not able to give a history he is very agitated. Hospital Course: Nursing called this morning. The patient wanted to leave. He stated he needed to go home. Went to see the patient and he had left. Did not tell nursing. Unsure if the patient has an IV The patient sister called and asked that the patient was discharged. Told her no. Asked to bring the patient to the office. When the patient sister turned the car around, and the patient jumped out and ran away. His addiction is obviously strong. When he resurfaces have asked the sister to bring the patient to the office We can consider buproprion. Which has some limited data in stimulant abuse. May consider Naltroxen in the patient which is used in alcohol addiction. Thank you for allowing us to take part in the patients care. Vital Signs/Physical Exam: Temp Pulse Resp BP Pulse Ox 98.8 F 60 14 154/91 H 99 10/05/20 04:00 10/05/20 04:00 10/05/20 04:00 10/05/20 04:00 10/05/20 04:00 General: Alert (NO Physical exam as the pateint left ama) Laboratory Data at Discharge: WBC 4.70 K/uL (4.3-10.9) D 10/05/20 05:27 Hgb 11.7 g/dL (13.6-17.9) L 10/05/20 05:27 Hct 35.0 % (39.6-49.0) L 10/05/20 05:27 Plt Count 184 K/uL (152-406) 10/05/20 05:27 PT 11.1 SECONDS (9.5-12.5) 10/04/20 13:14 INR 0.97 10/04/20 13:14 APTT 33.6 SECONDS (24.3-36.9) 10/04/20 13:14 Sodium 143 mmol/L (136-145) 10/05/20 05:27 Potassium 3.9 mmol/L (3.5-5.1) 10/05/20 05:27 BUN 8 mg/dL (7-18) 10/05/20 05:27 Creatinine 1.17 mg/dL (0.55-1.3) 10/05/20 05:27 Glucose 88 mg/dL (74-106) 10/05/20 05:27 Total Bilirubin 0.3 mg/dL (0.2-1.0) 10/04/20 13:14 AST 11 U/L (15-37) L 10/04/20 13:14 ALT 16 U/L (12-78) 10/04/20 13:14 Alkaline Phosphatase 81 U/L (45-117) 10/04/20 13:14 Home Medications: Amlodipine Besylate 1 10/04/20 Lisinopril [Zestril] 1 10/04/20 Quetiapine [Seroquel*] 1 10/04/20 Followup: Scottie Kaufman MD [Primary Care Provider] - Time spent managing pt's care (in minutes): 30
--- NOTE | 2020-10-05 11:55 | EKG ---
Test Date: 2020-10-04 Test Time: 12:53:23 Reinforcer: LUTHER MEASUREMENT RESULTS: Intervals: Rate: 57 GA: 148 QRSD: 104 QT: 444 QTc: 432 Landing: P: 70 GA: 148 QRS: 68 T: 65 INTERPRETIVE STATEMENTS: Sinus bradycardia Voltage criteria for left ventricular hypertrophy Cannot rule out Septal infarct, age undetermined Abnormal ECG Compared to ECG 03/19/2020 11:39:49 Sinus rhythm no longer present Myocardial infarct finding still present Electronically Signed On 10-05-20 11:53:36 [employer] by Gerson Gay
== END 2020-10-05 07:54 | disposition left against medical advice (07) | DRG 885 ==
LOC: ER 11:37 → ERHOLD 14:25
PROVIDERS: ADMIT Internal Medicine; ATTEND Internal Medicine
DX: F20.1 Disorganized schizophrenia (principal); I10 Essential (primary) hypertension; I16.0 Hypertensive urgency; F17.200 Nicotine dependence, unspecified, uncomplicated; Z91.14 Patient's other noncompliance with medication regimen; Z79.899 Other long term (current) drug therapy; Z53.29 Procedure and treatment not carried out because of patient's decision for other reasons; Z20.822 Contact with and (suspected) exposure to COVID-19
CPT/HCPCS: 36415; 70450; 80048; 80076; 80307; 80320; 80329; 81003; 85025; 85610; 85730; 93005; 96365; 96375; 99285; J0360; J1650; J3411; J7799; U0003

== ENCOUNTER 2020-10-25 14:47 | Emergency (ER) | payer MEDICAID ==
--- OUTSIDE RECORDS SUMMARY | 2020-10-25 14:50 | XMS REPORT | Continuity of Care Document ---
:1960 [address] [facility] t Address [address] [place] [address] Dr. [address] [place] [address] Care Team Providers Name Role Phone Unavailable Unavailable Unavailable Problems This patient has no known problems. Allergies, Adverse Reactions, Alerts This patient has no known allergies or adverse reactions. Medications This patient has no known medications. Procedures This patient has no known procedures. Results This patient has no known results.
[2020-10-25 15:34] LABS: Basophils % 0.7 % (0-1.3); Hematocrit 42.6 % (39.6-49.0); MPV 8.7 fL (7.6-11.3); RBC Red Blood Cell Count 4.81 M/uL (4.33-5.43)
--- NOTE | 2020-10-25 15:41 | RAD REPORT ---
EXAM DESCRIPTION: CT - Head Brain Wo Cont - 10/25/2020 3:31 pm CLINICAL HISTORY: CONFUSED COMPARISON: Head Brain Wo Cont dated 10/04/2020 TECHNIQUE: Axial 5 mm thick images of the head were obtained without IV contrast. All CT scans are performed using dose optimization technique as appropriate and may include automated exposure control or mA/KV adjustment according to patient size. FINDINGS: No intracranial hemorrhage, mass, edema or shift of mid-line structures. No acute cortical based infarction. Atrophy and chronic ischemic changes are present with ventricles in proportion. 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 No abnormal extra-axial fluid collections. Ventricles are in proportion to volume loss. Mastoid air cells and visualized portions of the paranasal sinuses are clear. No acute bony findings. IMPRESSION: No hemorrhage, acute infarction or other acute intracranial finding. Atrophy and chronic ischemic changes match the short interval October 04 study.
[2020-10-25] MEDS ORDERED: NA CHLORIDE 0.9% 1,000 ML ONE (15:50)
[2020-10-25 15:51] LABS: Potassium 3.8 mmol/L (3.5-5.1)
[2020-10-25 16:59] LABS: Urine Blood TRACE (NEG); Urine Glucose NEGATIVE (NEG); Urine Protein 2+ (NEG)
[2020-10-25 17:08] LABS: Barbiturates NEGATIVE (NEGATIVE); Benzodiazepines NEGATIVE (NEGATIVE); Cocaine POSITIVE (NEGATIVE); METHAMPHETAM NEGATIVE (NEGATIVE); Methadone NEGATIVE (NEGATIVE); Opiates POSITIVE (NEGATIVE); Phencyclidine NEGATIVE (NEGATIVE); THC Cannibis NEGATIVE (NEGATIVE)
--- NOTE | 2020-10-25 17:26 | RAD REPORT ---
EXAM DESCRIPTION: RAD - Chest Single View - 10/25/2020 4:56 pm CLINICAL HISTORY: weakness, hypertension COMPARISON: Single-view chest February 2020 TECHNIQUE: AP portable chest image was obtained 10/25/2020 4:56 pm . FINDINGS: No acute infiltrate. No failure or volume overload. The vague nodular density in the lower left lung field on the prior study is not seen on the current examination. Heart and vasculature are normal. No measurable pleural effusion and no pneumothorax. No acute bony abnormality seen. No acute aortic findings suspected. IMPRESSION: No acute cardiopulmonary process.
--- NOTE | 2020-10-25 17:38 | EDPHYS ---
Physician Documentation [facility] Name: Mino Castro Age: 60 yrs Sex: Male : 1960 Arrival Date: 10/25/2020 Time: 14:52 Bed 18 Private MD: ED Physician Preet Mendez HPI: 10/25 15:04 This 60 yrs old Black Male presents to ER via EMS with complaints of AMS. rn 15:04 The patient presents with agitation, decreased responsiveness. Onset: The rn symptoms/episode began/occurred today. Possible causes: drug use. Current symptoms: In the emergency department the patient's symptoms have improved. The patient has experienced similar episodes in the past. The patient has not recently seen a physician. Sister reports patient was ok this morning, she went to [place], got a call from a known drug dealer to pharmacy picking technician her brother that he "was out of it". Patient known to use cocaine and marijuana but seems more intoxicated today when she saw him so called 911. Pt reports has only had 2 hours of sleep in last 2 days. No focal pain or complaints. . Historical: - Allergies: 15:06 No Known Allergies; ca1 - Home Meds: 15:06 amlodipine oral [Active]; lisinopril Oral [Active]; Seroquel Oral [Active]; ca1 - PMHx: 15:06 Hypertension; Schizophrenia; Bipolar disorder; ca1 - PSHx: 15:06 None; ca1 - Immunization history:: Flu vaccine is up to date. - Social history:: Smoking status: Patient reports the use of cigarette tobacco products, smokes one pack cigarettes per day. - Family history:: not pertinent. - Hospitalizations: : No recent hospitalization is reported. ROS: 15:04 Constitutional: Negative for fever, chills, and weight loss, Eyes: Negative for injury, rn pain, redness, and discharge, Neck: Negative for injury, pain, and swelling, Cardiovascular: Negative for chest pain, palpitations, and edema, Respiratory: Negative for shortness of breath, cough, wheezing, and pleuritic chest pain, Abdomen/GI: Negative for abdominal pain, nausea, vomiting, diarrhea, and constipation, Back: Negative for injury and pain, MS/Extremity: Negative for injury and deformity, Skin: Negative for injury, rash, and discoloration, Neuro: Negative for headache, numbness, tingling, and seizure Exam: 15:04 Constitutional: Thin male, no acute distress, more alert and cooperative than EMS lead rn us to believe on report. Head/Face: Normocephalic, atraumatic. Eyes: Pupils equal round and reactive to light, extra-ocular motions intact. No nystagmus. ENT: dry MM Neck: Supple, full range of motion without nuchal rigidity, or vertebral point tenderness. No Meningismus. Cardiovascular: Regular rate and rhythm. No pulse deficits. Respiratory: No increased work of breathing, no retractions or nasal flaring. Abdomen/GI: soft, non-tender Skin: Warm, dry MS/ Extremity: Pulses equal, no cyanosis. Neurovascular intact. Full, normal range of motion. Equal circumference. Neuro: Awake and alert, GCS 15, oriented to person, place, and situation. Cranial nerves II-XII grossly intact. Motor strength 4/5 in all extremities. Sensory grossly intact. Vital Signs: 14:52 BP 181 / 89; Pulse 88; Resp 16 S; Temp 96.9(TE); Pulse Ox 99% on R/A; ca1 16:30 BP 191 / 89; Pulse 73; Resp 16 S; Pulse Ox 100% on R/A; ca1 17:30 BP 165 / 86; Pulse 73; Resp 16 S; Temp 97.3; Pulse Ox 100% on R/A; ca1 MDM: 14:59 Patient medically screened. rn 16:53 Differential Diagnosis: electrolyte abnormality, alcohol intoxication, overdose, rn pneumonia, UTI, volume depletion, dehydration. Data reviewed: vital signs, nurses notes, lab test result(s), EKG. ED course: marked improvement with IV fluids.. 17:34 ED course: Pt with UTI on top of his drug use, may explain why acting more tired than rn before, also positive for opiates which seems to be news to sister. Recommended admission for abx and fluids, patient refuses. Similar situation in past and left hospital. Pt understands problem, need for abx, and recommendation. Is alert, much more animated, wants prescription, and understands risks of going home. Sister agrees with me on admission, but patient insists on going home. Had long conversation with patient regarding need to stop drug use. . 10/25 15:01 Order name: CBC with Diff rn 10/25 15:01 Order name: Basic Metabolic Panel rn 10/25 15:01 Order name: Urine Drug Screen; Complete Time: 17:22 rn 10/25 15:01 Order name: ETOH Level; Complete Time: 16:39 rn 10/25 15:02 Order name: CBC with Automated Diff; Complete Time: 15:44 EDTN 10/25 15:02 Order name: Basic Metabolic Panel; Complete Time: 16:39 EDTN 10/25 15:01 Order name: CT Head Brain wo Cont; Complete Time: 15:44 rn 10/25 15:44 Order name: Urine Microscopic Only 10/25 15:45 Order name: XRAY Chest (1 view); Complete Time: 17:34 rn 10/25 15:45 Order name: Urine Microscopic Only [facility] 10/25 16:54 Order name: Urine Dipstick--Ancillary (enter results); Complete Time: 17:22 10/25 17:50 Order name: Urine Culture [facility] 10/25 15:01 Order name: IV Start; Complete Time: 15:27 rn 10/25 15:01 Order name: EKG; Complete Time: 15:02 rn 10/25 15:01 Order name: EKG - Nurse/Tech; Complete Time: 15:42 rn 10/25 15:44 Order name: Urine Dipstick-Ancillary (obtain specimen); Complete Time: 16:29 rn Administered Medications: 15:38 Drug: NS 0.9% 1000 ml Route: IV; Rate: 1000 ml; Site: right upper arm; ca1 16:45 Follow up: Response: No adverse reaction; IV Status: Completed infusion; IV Intake: ca1 1000ml 17:56 Drug: Rocephin 1 grams Route: IV; Rate: calculated rate; Site: right upper arm; ca1 18:02 Follow up: Response: No adverse reaction; IV Status: Completed infusion ca1 Disposition: 10/25/20 17:37 Discharged to Home. Impression: Urinary tract infection, site not specified, Cocaine abuse, Opioid abuse, Dehydration. - Condition is Stable. - Discharge Instructions: Stimulant Use Disorder-Cocaine, Dehydration, Adult, Opioid Overdose, Urinary Tract Infection, Adult. - Prescriptions for Cipro 500 mg Oral Tablet - take 1 tablet by ORAL route every 12 hours for 10 days; 20 tablet. - Medication Reconciliation Form, Thank You Letter, Antibiotic Education, Prescription Opioid Use form. - Follow up: Private Physician; When: As needed; Reason: Recheck today's complaints, Re-evaluation by your physician. - Problem is an ongoing problem. - Symptoms have improved. Signatures: Dispatcher [employer] EDMS Preet Mendez MD MD rn Acob, ALYSIA Spivey RN ca1 Corrections: (The following items were deleted from the chart) 18:03 17:37 10/25/2020 17:37 Discharged to Home. Impression: Urinary tract infection, site ca1 not specified; Cocaine abuse; Opioid abuse; Dehydration. Condition is Stable. Forms are Medication Reconciliation Form, Thank You Letter, Antibiotic Education, Prescription Opioid Use. Follow up: Private Physician; When: As needed; Reason: Recheck today's complaints, Re-evaluation by your physician. Problem is an ongoing problem. Symptoms have improved. rn
--- NOTE | 2020-10-25 17:38 | ER ---
Nurse's Notes [facility] Name: Mino Castro Age: 60 yrs Sex: Male : 1960 Arrival Date: 10/25/2020 Time: 14:52 Bed 18 Private MD: Diagnosis: Urinary tract infection, site not specified;Cocaine abuse;Opioid abuse;Dehydration Presentation: 10/25 14:52 Chief complaint: EMS states: called in for HPN. Upon arrival on scene pt was ca1 uncooperative, almost combative. Sister stated pt was not that way this morning. [facility] is here. He said he was unable to sleep last night so he has been sleeping oh our way here. EMS was not able to get VS. Pt has HX of Bipolar and Schizophrenia. Taking Lisinopril and Seroquel. Coronavirus screen: Client denies travel out of the [place] in the last 14 days. At this time, the client does not indicate any symptoms associated with coronavirus-19. Ebola Screen: Patient negative for fever greater than or equal to 101.5 degrees Fahrenheit, and additional compatible Ebola Virus Disease symptoms Patient denies exposure to infectious person. Patient denies travel to an Ebola-affected area in the 21 days before illness onset. No symptoms or risks identified at this time. Initial Sepsis Screen: Does the patient meet any 2 criteria? No. Patient's initial sepsis screen is negative. Does the patient have a suspected source of infection? No. Patient's initial sepsis screen is negative. Risk Assessment: Do you want to hurt yourself or someone else? Patient reports no desire to harm self or others. Onset of symptoms was October 25, 2020. 14:52 Method Of Arrival: EMS: [facility] ca1 14:52 Acuity: VANDANA 3 ca1 Historical: - Allergies: 15:06 No Known Allergies; ca1 - Home Meds: 15:06 amlodipine oral [Active]; lisinopril Oral [Active]; Seroquel Oral [Active]; ca1 - PMHx: 15:06 Hypertension; Schizophrenia; Bipolar disorder; ca1 - PSHx: 15:06 None; ca1 - Immunization history:: Flu vaccine is up to date. - Social history:: Smoking status: Patient reports the use of cigarette tobacco products, smokes one pack cigarettes per day. - Family history:: not pertinent. - Hospitalizations: : No recent hospitalization is reported. Screenin:00 Abuse screen: Denies threats or abuse. Denies injuries from another. Nutritional ca1 screening: No deficits noted. Tuberculosis screening: No symptoms or risk factors identified. Fall Risk IV access (20 points). Assessment: 15:00 General: Appears in no apparent distress. uncomfortable, unkempt, Behavior is ca1 cooperative, flat. Pain: Denies pain. Neuro: Level of Consciousness is awake, obeys commands, Oriented to person. Cardiovascular: Heart tones S1 S2 present Capillary refill < 3 seconds Patient's skin is warm and dry. Respiratory: Airway is patent Respiratory effort is even, unlabored, Respiratory pattern is regular, symmetrical, Breath sounds are clear bilaterally. GI: Abdomen is flat, non-distended, Bowel sounds present X 4 quads. Abd is soft and non tender X 4 quads. : No signs and/or symptoms were reported regarding the genitourinary system. EENT: No signs and/or symptoms were reported regarding the EENT system. Derm: Skin is intact, is fragile, is thin, with poor turgor Skin is pink, warm \T\ dry. Musculoskeletal: Circulation, motion, and sensation intact. Capillary refill < 3 seconds. 15:40 Reassessment: [phone] Kaleigh sister. ca1 16:41 Reassessment: Patient appears in no apparent distress at this time. Patient and/or ca1 family updated on plan of care and expected duration. Pain level reassessed. Patient is alert, oriented x 3, equal unlabored respirations, skin warm/dry/pink. 17:45 Reassessment: Patient appears in no apparent distress at this time. Patient is alert, ca1 oriented x 3, equal unlabored respirations, skin warm/dry/pink. Vital Signs: 14:52 BP 181 / 89; Pulse 88; Resp 16 S; Temp 96.9(TE); Pulse Ox 99% on R/A; ca1 16:30 BP 191 / 89; Pulse 73; Resp 16 S; Pulse Ox 100% on R/A; ca1 17:30 BP 165 / 86; Pulse 73; Resp 16 S; Temp 97.3; Pulse Ox 100% on R/A; ca1 ED Course: 14:52 Patient arrived in ED. iw 14:59 Preet Mendez MD is Attending Physician. rn 15:00 Allyssa Camarillo RN is Primary Nurse. ca1 15:04 Triage completed. ca1 15:06 Arm band placed on right wrist. ca1 15:28 Inserted saline lock: 20 gauge in right upper arm, using aseptic technique. Blood ca1 collected. 15:31 CT Head Brain wo Cont In Process Unspecified. EDMS 16:28 Patient has correct armband on for positive identification. Placed in gown. Bed in low mh5 position. Call light in reach. Side rails up X2. Warm blanket given. pattern gater on. Pulse ox on. NIBP on. 16:28 Urine collected: straight cath specimen, cloudy. 5 16:28 Urine Microscopic Only Sent. mh5 16:29 Urine Microscopic Only Sent. mh5 16:29 Urine Drug Screen Sent. mh5 16:29 Straight cath inserted, using sterile technique, 16 Fr. mh5 16:56 XRAY Chest (1 view) In Process Unspecified. EDMS 18:03 No provider procedures requiring assistance completed. IV discontinued, intact, ca1 bleeding controlled, No redness/swelling at site. Pressure dressing applied. Administered Medications: 15:38 Drug: NS 0.9% 1000 ml Route: IV; Rate: 1000 ml; Site: right upper arm; ca1 16:45 Follow up: Response: No adverse reaction; IV Status: Completed infusion; IV Intake: ca1 1000ml 17:56 Drug: Rocephin 1 grams Route: IV; Rate: calculated rate; Site: right upper arm; ca1 18:02 Follow up: Response: No adverse reaction; IV Status: Completed infusion ca1 Intake: 16:45 IV: 1000ml; Total: 1000ml. ca1 Outcome: 17:37 Discharge ordered by . rn 18:03 Discharged to home ambulatory, with family. ca1 18:03 Condition: improved 18:03 Discharge instructions given to family, [id number] Instructed on discharge instructions, follow up and referral plans. medication usage, Demonstrated understanding of instructions, follow-up care, medications, Prescriptions given X 1. 18:03 Patient left the ED. ca1 Addendum: 10/28/2020 07:16 Addendum: Culture Results: Positive urine culture. No further action required. Bacteria e b sensitive to prescribed antibiotic. Signatures: Dispatcher [employer] EDNM Carmen Alcazar RN RN iw Nieto, Roman, MD MD rn Martinez, Viki [facility] Pratima Cooper Cheryl, RN RN ca1 Corrections: (The following items were deleted from the chart) 10/25 18:02 17:30 BP 165 / 86; Pulse 73bpm; Resp 16bpm; Spontaneous; Pulse Ox 100% RA; ca1 ca1
[2020-10-25 17:40] LABS: Urine Bacteria >50 /HPF (NONE SEEN); Urine RBC <5 /HPF (NONE SEEN)
[2020-10-25 17:41] LABS: Urine Mucus 2+ /HPF (NONE SEEN)
[2020-10-25] MEDS ORDERED: CEFTRIAXONE/SWI 1gm 1 GM/10 ML SYR ONE (18:11)
[2020-10-25 19:39] VITALS: O2SAT 100
[2020-10-25 19:40] VITALS: BP 165/86; TEMP 97.3
--- NOTE | 2020-10-26 22:28 | EKG ---
Test Date: 2020-10-25 Test Time: 15:56:24 Post Anesthesia Nurse: IVONE MEASUREMENT RESULTS: Intervals: Rate: 66 MO: 152 QRSD: 96 QT: 458 QTc: 480 Archer: P: 79 MO: 152 QRS: 72 T: 74 INTERPRETIVE STATEMENTS: Normal sinus rhythm with sinus arrhythmia Moderate voltage criteria for LVH, may be normal variant Cannot rule out Septal infarct, age undetermined Abnormal ECG Compared to ECG 10/04/2020 12:53:23 Sinus bradycardia no longer present Myocardial infarct finding still present Electronically Signed On 10-26-20 22:25:36 CONTROL TOWER RADIO OPERATOR by Gerson Gay
== END 2020-10-25 18:03 | disposition home or self-care (01) ==
LOC: ER 14:47
DX: N39.0 Urinary tract infection, site not specified (principal); E86.0 Dehydration; F14.10 Cocaine abuse, uncomplicated; F11.10 Opioid abuse, uncomplicated; F20.9 Schizophrenia, unspecified; I10 Essential (primary) hypertension; F17.210 Nicotine dependence, cigarettes, uncomplicated
CPT/HCPCS: 96361; 93005; 87088; 85025; 87086; 80048; 36415; 80320; 80307 ×8; 87077; 87186; 70450; 71045; 51702; 96374; 99284; J0696; J7030; 81003; 81015

== ENCOUNTER 2021-07-24 20:52 | Emergency (ER) | payer OTHER ==
--- OUTSIDE RECORDS SUMMARY | 2021-07-24 20:54 | XMS REPORT | Continuity of Care Document ---
:1960 Author Organization [facility] t Address [address] [place] [address] Dr. [address] [place] [id number] Care Team Providers Name Role Phone Unavailable Unavailable Unavailable Problems This patient has no known problems. Allergies, Adverse Reactions, Alerts This patient has no known allergies or adverse reactions. Medications This patient has no known medications. Procedures This patient has no known procedures. Results This patient has no known results.
[2021-07-24] MEDS ORDERED: dexAMETHasone 10 MG/ML VIAL ONE (21:27)
[2021-07-24] MEDS ORDERED: EPINEPHRINE INH 0.5 ML VIAL IH ONE (21:28)
[2021-07-24 21:39] LABS: Absolute Lymphocytes (CBC) 0.5 K/uL (0.7-4.9); Basophils % 0.6 % (0-1.3); Hematocrit 35.2 % (39.6-49.0); Lymphocytes % 5.4 % (15.3-44.8); MPV 7.6 fL (7.6-11.3); RBC Red Blood Cell Count 3.95 M/uL (4.33-5.43)
[2021-07-24 21:42] LABS: Protime INR 1.02
--- NOTE | 2021-07-24 21:44 | RAD REPORT ---
EXAM DESCRIPTION: RAD - Chest Single View - 07/24/2021 9:27 pm CLINICAL HISTORY: DYSPNEA Chest pain. COMPARISON: Chest Single View dated 10/25/2020; Chest Single View dated 03/19/2020 FINDINGS: Portable technique limits examination quality. The lungs are mildly emphysematous but grossly clear. The heart is normal in size. No displaced fract ures. IMPRESSION: Mild COPD.
[2021-07-24 22:39] LABS: Blood Morphology Comment NOT SEEN (NOT SEEN); Platelet Estimate ADEQ
[2021-07-24 22:43] LABS: Barbiturates NEGATIVE (NEGATIVE); Benzodiazepines NEGATIVE (NEGATIVE); Cocaine POSITIVE (NEGATIVE); METHAMPHETAM NEGATIVE (NEGATIVE); Methadone NEGATIVE (NEGATIVE); Opiates NEGATIVE (NEGATIVE); Phencyclidine NEGATIVE (NEGATIVE); THC Cannibis POSITIVE (NEGATIVE)
[2021-07-24] MEDS ORDERED: LEVALBUTEROL 1.25 MG/3 ML NEB ONE (23:44)
[2021-07-24] MEDS ORDERED: NA CHLORIDE 0.9% 50 ML ONE (23:45)
[2021-07-24] MEDS ORDERED: PIPERACIL/TAZO 3.375 GM VIAL IV ONE (23:45)
[2021-07-25 00:09] LABS: ALT/SGPT 33 U/L (12-78); AST/SGOT 25 U/L (15-37); Alkaline Phosphatase 73 U/L (45-117); BUN Blood Urea Nitrogen 11 mg/dL (7-18); Bicarbonate 32 mmol/L (21-32); Bilirubin Direct 0.1 mg/dL (0-0.2); Bilirubin Total 0.3 mg/dL (0.2-1.0); Creatine Phosphokinase 260 U/L (39-308); Glucose Level 128 mg/dL (74-106); Lipase 74 U/L (73-393); Magnesium 1.7 mg/dL (1.8-2.4); NT PRO-BNP 665 pg/mL (<125); Potassium 3.4 mmol/L (3.5-5.1); Protein, Total 7.5 g/dL (6.4-8.2); Sodium Level 128 mmol/L (136-145); Thyroid Stimulating Hormone 0.901 uIU/mL (0.360-3.740)
[2021-07-25 01:08] LABS: Troponin (Emerg Dept Use Only) < 0.02 ng/mL (0.0-0.045)
--- NOTE | 2021-07-25 01:24 | EDPHYS ---
Physician Documentation [facility] Name: Mino Castro Age: 61 yrs Sex: Male : 1960 Arrival Date: 07/24/2021 Time: 20:53 Bed 3 Private MD: ED Physician Preet Mendez HPI: 07/24 20:58 This 61 yrs old Black Male presents to ER via Unassigned with complaints of Breathing rn Difficulty. 20:58 The patient has shortness of breath at rest. Onset: The symptoms/episode began/occurred rn 1 week(s) ago. Duration: The symptoms are continuous. The patient's shortness of breath is aggravated by exertion, light activity, is alleviated by inhaler. Associated signs and symptoms: Pertinent positives: Shortness of breath, Pertinent negatives: fever, hemoptysis. Severity of symptoms: At their worst the symptoms were moderate in the emergency department the symptoms are unchanged. The patient has not experienced similar symptoms in the past. The patient has not recently seen a physician. Patient reports shortness of breath for the last week, improved slightly with inhaler, no fever, no weight loss, no hemoptysis, no difficulty swallowing. Family member told EMS possibility of cancer but patient denies. No trauma. Family also told EMS that this has been going on for a while. No other information given to EMS. EMS gave breathing treatment and Solu-Medrol. Patient denies chest pain or abdominal pain. No known history of DVT or PE. Denies history of COPD or asthma but has inhaler.. 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 - Social history:: Smoking status: Patient reports the use of cigarette tobacco products, smokes two packs cigarettes per day. - Family history:: not pertinent. - Hospitalizations: : No recent hospitalization is reported. ROS: 20:58 Constitutional: Negative for fever, chills, and weight loss, Eyes: Negative for injury, rn pain, redness, and discharge, ENT: Negative for injury, pain, and discharge, Neck: Negative for injury, pain, and swelling, Cardiovascular: Negative for chest pain, palpitations, and edema, Respiratory: Positive for shortness of breath Abdomen/GI: Negative for abdominal pain, nausea, vomiting, diarrhea, and constipation, Back: Negative for injury and pain, : Negative for injury, bleeding, discharge, and swelling, MS/Extremity: Negative for injury and deformity, Skin: Negative for injury, rash, and discoloration, Neuro: Negative for headache, weakness, numbness, tingling, and seizure. Exam: 20:58 Constitutional: Thin male with respiratory distress and stridor Head/Face: rn Normocephalic, atraumatic. Eyes: Periorbital areas with no swelling, redness, or edema. ENT: Dry mucous without difficulty swallowing Neck: Prominent anterior neck, symmetric, no crepitus, no tenderness Cardiovascular: Tachycardic, regular. No pulse deficits Respiratory: Tachypneic, with auditory stridor. Retractions present Abdomen/GI: Soft, non-tender Skin: Warm, dry MS/ Extremity: Pulses equal, no cyanosis, equal circumference Neuro: Awake and alert, GCS 15 Vital Signs: 20:54 BP 174 / 113; Pulse 103; Resp 24; Temp 98.7; Pulse Ox 99% on 8% Nebulizer Mask; Weight tw5 54.43 kg; Height 6 ft. 5 in. (195.58 cm); Pain 0/10; 20:59 BP 174 / 113; Pulse 96; Resp 22; tw5 22:23 BP 147 / 81; Pulse 80; Resp 16; Pulse Ox 100% on 6% Simple Mask; tw5 23:54 BP 174 / 90; Pulse 88; Resp 18; Pulse Ox 100% on Nebulizer Mask; tw5 07/25 00:30 BP 157 / 90; Pulse 85; Resp 19; Pulse Ox 100% on BiPAP; df1 02:00 BP 136 / 91; Pulse 96; Resp 22; Pulse Ox 100% on BiPAP; tw5 07/24 20:54 Body Mass Index 14.23 (54.43 kg, 195.58 cm) tw5 MDM: 07/24 20:53 Patient medically screened. rn 21:09 ED course: Family here now, states told in April that they thought they saw 2 rn esophageal masses and has been having mild stridor since then but not this bad. Patient has been refusing scopes and when taken to the hospital leaves against advice and sister says she has very frustrated. Sister states he has also been having issues swallowing for the last month as well as weight loss. Patient is active smoker.. 07/25 00:03 Differential diagnosis: Bronchitis Chronic Obstructive Pulmonary Disease pneumonia, rn Pneumothorax pulmonary edema, Pulmonary Embolism Unstable Angina pharyngeal mass, stridor, malignant cancer. Antibiotic administration: ED course: CT of the lungs shows left lower lobe pneumonia and signs of COPD. CT of the neck shows irregular mass of the hypopharynx level with compression of the trachea and its most narrow 0.4 cm diameter. Consulted with Dr. Woodward, ENT, who is happy to consult on the patient tomorrow morning. Spoke with hospitalist who recommends transfer due to no ICU availability in ER currently holding for ICU patients.. ED course: Patient placed on BiPAP and has improved, stridor has improved even prior to placing on BiPAP. Patient likely with COPD exacerbation and acute pneumonia that is exacerbating his slowly growing pharyngeal mass with compression on the trachea. Sister states he has had on and off stridor for some time now.. 00:06 Data reviewed: vital signs, nurses notes, lab test result(s), EKG, radiologic studies, rn CT scan, plain films, and as a result, I will admit patient. Counseling: I had a detailed discussion with the patient and/or guardian regarding: the historical points, exam findings, and any diagnostic results supporting the discharge/admit diagnosis, lab results, radiology results, the need for further work-up and treatment in the hospital, the need to transfer to another facility. Response to treatment: the patient's symptoms have mildly improved after treatment, and as a result, I will admit patient. 00:09 ED course: Initiated transfer to [facility] for higher level of care rn and lack of ICU availability here. . 00:19 ED course: [facility] declines transfer 2/2 at capacity. Pt has been evaluated [facility], [facility]. . 00:53 ED course: [facility] declined transfer. Trying [facility]. . rn 01:14 ED course: [facility] connected me with ENT attending, who requests I speak with MICU rn attending, they are now checking availability. . 01:21 ED course: [facility] accepts patient for transfer. Pt with remain on Bipap for transfer, rn doing well and resting comfortably on Bipap without stridor.. 07/24 20:55 Order name: BMP; Complete Time: : 07/24 20:55 Order name: Blood Culture Adult (2) 07/24 20:55 Order name: CBC with Diff; Complete Time: 22:43 07/24 20:55 Order name: CPK; Complete Time: : 07/24 20:55 Order name: Hepatic Function; Complete Time: 07/24 20:55 Order name: Lipase; Complete Time: 07/24 20:55 Order name: Magnesium; Complete Time: : 07/24 20:55 Order name: NT PRO-BNP; Complete Time: 07/24 20:55 Order name: PT-INR; Complete Time: :49 07/24 20:55 Order name: Ptt, Activated; Complete Time: : 07/24 20:55 Order name: Troponin (emerg Dept Use Only); Complete Time: 07/24 20:56 Order name: TSH; Complete Time: 07/24 20:56 Order name: T4 Free; Complete Time: : 07/24 20:56 Order name: COVID-19 SARS RT PCR (Document "Date of Onset" if Symptomatic); Complete rn Time: 07/24 20:55 Order name: XRAY CXR (1 view); Complete Time: 21:49 07/24 20:55 Order name: EKG; Complete Time: 20:57 07/24 20:55 Order name: Cardiac monitoring; Complete Time: : 07/24 20:55 Order name: EKG - Nurse/Tech; Complete Time: 21:43 07/24 20:55 Order name: IV Saline Lock; Complete Time: : 07/24 20:55 Order name: Labs collected and sent; Complete Time: : 07/24 20:55 Order name: O2 Per Protocol; Complete Time: : 07/24 20:55 Order name: CT Soft Tissue Neck W/contr rn 07/24 20:55 Order name: CT Chest For PE Angio rn 07/24 20:57 Order name: Urine Drug Screen; Complete Time: 22:43 07/24 21:45 Order name: Manual Differential; Complete Time: 22:43 EDMS 07/24 23:15 Order name: BIPAP rn 07/24 20:55 Order name: O2 Sat Monitoring; Complete Time: 21:28 rn 07/24 21:44 Order name: Labs - recollect needed: green top needed; Complete Time: 22:24 mw2 Administered Medications: 07/24 21:38 Drug: Racemic EPINPHrine 0.5 ml Route: Inhalation; 5 21:38 Drug: Decadron - Dexamethasone 10 mg Route: IVP; Site: left antecubital; 5 22:24 Follow up: Response: No adverse reaction tw5 23:54 Drug: Xopenex (levalbuterol) (3) 1.25 mg Route: Inhalation; tw5 07/25 02:01 Follow up: Response: No adverse reaction tw5 00:03 Drug: Zosyn (piperacillin-tazobactam) 3.375 grams Route: IVPB; Infused Over: 60 mins; tw5 Site: left antecubital; 02:01 Follow up: Response: No adverse reaction; IV Status: Completed infusion tw5 Disposition: 01:21 Critical Care:. rn Disposition Summary: 07/25/21 01:24 Transfer Ordered Transfer Location: [facility] rn Reason: Higher level of care rn Condition: Stable rn Problem: an ongoing problem rn Symptoms: have improved rn Accepting Physician: (07/25/21 02:29) tw5 Diagnosis - Lobar pneumonia, unspecified organism rn - COPD/ Chronic obstructive pulmonary disease with acute lower respiratory infection rn - Malignant neoplasm of hypopharynx, unspecified - With tracheal compression and rn stridor Forms: - Medication Reconciliation Form rn - SBAR form operations intern time excluding procedures: :21 Critical care time: Bedside Care: 35 minutes, Consultation: 10 minutes, Family rn Intervention: 10 minutes. Total time: 55 minutes Signatures: Dispatcher [employer] EDMS Preet Mendez MD MD rn Attema, Lee, STEEL RIGGER-C STEEL RIGGER-Cla1 Mahnaz Menjivar mw2 Rachna Munoz tw5 Keya Moore RN RN 5 Corrections: (The following items were deleted from the chart) 07/24 21:09 20:58 Patient reports shortness of breath for the last week, improved slightly with rn inhaler, no fever, no weight loss, no hemoptysis, no difficulty swallowing. Family member told EMS possibility of cancer but patient denies. No trauma. Family also told EMS that this has been going on for a while. No other information given to EMS. EMS gave breathing treatment and Solu-Medrol. Patient denies chest pain or abdominal pain. No known history of DVT or PE. Denies history of COPD or asthma but has inhaler.. [facility] 07/25 02:29 01:24 Dr. mueller tw5
--- NOTE | 2021-07-25 01:24 | ER ---
Nurse's Notes [facility] Name: Mino Castro Age: 61 yrs Sex: Male : 1960 Arrival Date: 07/24/2021 Time: 20:53 Bed 3 Private MD: Diagnosis: Lobar pneumonia, unspecified organism;COPD/ Chronic obstructive pulmonary disease with acute lower respiratory infection;Malignant neoplasm of hypopharynx, unspecified-With tracheal compression and stridor Presentation: 07/24 20:54 Chief complaint: EMS states: "Sister who has medical power of district attorney stated he has tw5 schizophrenia and has been having this difficulty breathing since April but he is refusing medical help. All the family was at his house, they stated that he wasn't breathing, so they started shaking him. No CPR or rescue breathing was given. The sister stated he couldn't refuse the EMS and had to go to the hospital.". Coronavirus screen: Vaccine status: Patient reports being unvaccinated. Ebola Screen: Patient negative for fever greater than or equal to 101.5 degrees Fahrenheit, and additional compatible Ebola Virus Disease symptoms Patient denies exposure to infectious person. Patient denies travel to an Ebola-affected area in the 21 days before illness onset. Initial Sepsis Screen: Does the patient meet any 2 criteria? RR > 20 per min. Altered Mental Status. Yes Does the patient have a suspected source of infection? No. Patient's initial sepsis screen is negative. Risk Assessment: Do you want to hurt yourself or someone else? Patient reports no desire to harm self or others. Onset of symptoms is unknown. 20:54 Method Of Arrival: EMS: [facility] tw 20:54 Acuity: VANDANA 3 tw5 07/25 00:33 Note Pt placed on BiPap to reduce work of breathing. 07/31/16 35% O2. df1 Triage Assessment: 07/24 20:59 General: Appears distressed, Behavior is calm, cooperative. Pain: Denies pain. tw5 Respiratory: Reports shortness of breath Onset: The symptoms/episode began/occurred at an unknown time. the patient has severe shortness of breath. 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 - Social history:: Smoking status: Patient reports the use of cigarette tobacco products, smokes two packs cigarettes per day. - Family history:: not pertinent. - Hospitalizations: : No recent hospitalization is reported. Screenin:26 Abuse screen: Denies threats or abuse. Denies injuries from another. Nutritional tw5 screening: No deficits noted. Tuberculosis screening: No symptoms or risk factors identified. Fall Risk IV access (20 points). Ambulatory Aid- Gait- Weak (10 pts.). Assessment: 21:06 Cardiovascular: Rhythm is sinus tachycardia. Respiratory: Airway is compromised Trachea tw5 midline Respiratory effort is gasping, with retractions, Respiratory pattern is Stridor noted Breath sounds with wheezes bilaterally. 21:26 General: Appears distressed, slender, emaciated. tw5 22:23 Respiratory: Stridor noted. tw5 23:36 General: Called RT for BIPAP. tw5 07/25 02:00 General: Patient appears restless. He has repeatedly removed his Bipap.. tw5 Vital Signs: 07/24 20:54 BP 174 / 113; Pulse 103; Resp 24; Temp 98.7; Pulse Ox 99% on 8% Nebulizer Mask; Weight tw5 54.43 kg; Height 6 ft. 5 in. (195.58 cm); Pain 0/10; 20:59 BP 174 / 113; Pulse 96; Resp 22; tw5 22:23 BP 147 / 81; Pulse 80; Resp 16; Pulse Ox 100% on 6% Simple Mask; tw5 23:54 BP 174 / 90; Pulse 88; Resp 18; Pulse Ox 100% on Nebulizer Mask; tw5 07/25 00:30 BP 157 / 90; Pulse 85; Resp 19; Pulse Ox 100% on BiPAP; df1 02:00 BP 136 / 91; Pulse 96; Resp 22; Pulse Ox 100% on BiPAP; tw5 07/24 20:54 Body Mass Index 14.23 (54.43 kg, 195.58 cm) tw5 ED Course: 07/24 20:53 Patient arrived in ED. tw5 20:53 Preet Mendez MD is Attending Physician. rn 20:59 Triage completed. tw5 20:59 Arm band placed on left wrist. Patient Sister arrived at the bedside "ISN'T THERE tw5 ANYTHING YOU CAN DO FOR HIS BREATHING." patient currently on nebulizer. It was explained to the sister we are doing what we can at the moment. Doc Vanessa arrived at the bedside getting history from sister. Everytime nursing staff asked the patient a question, sister wouldn't interrupt stating "HE IS SCHIZOPHRENIC HE DONT UNDERSTAND YOU." Patient states he is not hurting at this moment. 21:26 Rachna Munoz is Primary Nurse. tw5 21:26 Patient has correct armband on for positive identification. Placed in gown. Bed in low tw5 position. Call light in reach. Side rails up X 1. hospital monitor on. Pulse ox on. NIBP on. Door closed. Noise minimized. Lights dimmed. Warm blanket given. Verbal reassurance given. 21:26 Inserted saline lock: 20 gauge in left antecubital area, using aseptic technique. Blood tw5 collected. Missed attempt(s): 14 gauge 22 gauge Bleeding controlled, band aid applied, catheter tip intact. 21:27 XRAY CXR (1 view) In Process Unspecified. EDMS 21:28 Initial lab(s) drawn, by me, sent to lab. First set of blood cultures drawn by me, tw5 COVID swab sent to lab. 21:28 COVID-19 SARS RT PCR (Document "Date of Onset" if Symptomatic) Sent. tw 21:28 Troponin (emerg Dept Use Only) Sent. tw 21:28 Ptt, Activated Sent. tw 21:28 PT-INR Sent. tw 21:28 NT PRO-BNP Sent. tw 21:28 Magnesium Sent. tw 21:28 Lipase Sent. tw 21:28 Hepatic Function Sent. tw 21:28 CPK Sent. tw 21:28 CBC with Diff Sent. tw 21:28 BMP Sent. tw 21:28 Blood Culture Adult (2) Sent. 21:29 BMP Sent. tw 21:29 TSH Sent. tw 21:29 T4 Free Sent. tw 21:29 Lipase Sent. tw 21:29 Hepatic Function Sent. tw 21:29 CPK Sent. tw 21:29 CBC with Diff Sent. tw 21:29 Magnesium Sent. tw 21:30 NT PRO-BNP Sent. tw5 21:30 PT-INR Sent. tw5 21:30 Ptt, Activated Sent. tw5 21:30 Troponin (emerg Dept Use Only) Sent. tw5 22:18 Urine Drug Screen Sent. df1 22:18 COVID-19 SARS RT PCR (Document "Date of Onset" if Symptomatic) Sent. df1 22:24 Lab(s) recollected, by me, sent to lab. tw5 22:24 T4 Free Sent. tw5 22:24 TSH Sent. tw5 22:24 BMP Sent. tw5 22:24 Blood Culture Adult (2) Sent. tw5 22:24 CPK Sent. tw5 22:25 Hepatic Function Sent. tw5 22:25 Lipase Sent. tw5 22:25 Magnesium Sent. tw5 22:25 NT PRO-BNP Sent. tw5 22:25 Troponin (emerg Dept Use Only) Sent. tw5 22:25 Manual Differential Sent. tw5 22:54 CT Soft Tissue Neck W/contr In Process Unspecified. EDMS 22:54 CT Chest For PE Angio In Process Unspecified. EDKS 07/25 00:02 initiated a transfer with Jackie Galvez from [facility] Transfer [place]. mw2 00:16 [facility] denied due to capacity. mw2 00:16 initiated a transfer with Yosvany Murciaandressa from [facility]. mw2 00:52 [facility] denied due to capacity. mw2 01:[address] Mendez with the ENT Doctor from [facility]. mw2 01:[address] Mendez with the MICU Doctor from [facility]. mw2 01:28 adminstrative approval given by Moraima Meng/ patient has been accepted to [address] bed 8 B 824/Dr. Alvarez accepted the patient in transfer/report to be called to [phone]. 02:01 No provider procedures requiring assistance completed. Patient transferred, IV remains tw5 in place. Administered Medications: 07/24 21:38 Drug: Racemic EPINPHrine 0.5 ml Route: Inhalation; sm5 21:38 Drug: Decadron - Dexamethasone 10 mg Route: IVP; Site: left antecubital; 5 22:24 Follow up: Response: No adverse reaction tw5 23:54 Drug: Xopenex (levalbuterol) (3) 1.25 mg Route: Inhalation; tw5 07/25 02:01 Follow up: Response: No adverse reaction tw5 00:03 Drug: Zosyn (piperacillin-tazobactam) 3.375 grams Route: IVPB; Infused Over: 60 mins; tw5 Site: left antecubital; 02:01 Follow up: Response: No adverse reaction; IV Status: Completed infusion tw5 Outcome: 01:24 ER care complete, transfer ordered by MD. hatfield 02:00 Transferred to [facility], Note: Report called to Sis HATFIELD tw5 02:00 Condition: stable 02:00 Instructed on the need for transfer. 02:29 Patient left the ED. Signatures: Dispatcher [employer] EDPreet Kirk MD MD rn [place], MyKena mw2 Fadumo Falk df1 Rachna Munoz tw5 Keya Moore, RN RN 5 Corrections: (The following items were deleted from the chart) 01:25 01:[address] Mendez with Dr. Day from [facility] mw2
[2021-07-25 02:37] VITALS: TEMP 98.7
[2021-07-25 02:40] VITALS: O2SAT 100
[2021-07-25 02:44] VITALS: BP 136/91
--- NOTE | 2021-07-25 07:05 | EKG ---
Test Date: 2021-07-24 Test Time: 21:37:41 Patient Access Associate: [employer] MEASUREMENT RESULTS: Intervals: Rate: 88 AK: 126 QRSD: 96 QT: 386 QTc: 467 [place]: P: -1 AK: 126 QRS: 73 T: 58 INTERPRETIVE STATEMENTS: Normal sinus rhythm Moderate voltage criteria for LVH, may be normal variant Cannot rule out Septal infarct, age undetermined T wave abnormality, consider lateral ischemia Abnormal ECG Compared to ECG 10/25/2020 15:56:24 T-wave abnormality now present Possible ischemia now present Sinus arrhythmia no longer present Myocardial infarct finding still present Electronically Signed On 07-25-21 07:04:29 OSS ARCHITECT by Gerson Gay
--- NOTE | 2021-07-25 11:40 | RAD REPORT ---
EXAM DESCRIPTION: Soft Tissue Neck W/Contr RadLex: CT NECK WITH IV CONTRAST CLINICAL HISTORY: Stridor, neck swelling. COMPARISON: None. TECHNIQUE: CT of the neck was performed following intravenous administration of iodinated contrast. Axial, coronal, and sagittal reconstructions were created and sent to PACS. This exam was performed according to our departmental dose-optimization program, which includes autom ated exposure control, adjustment of the mA and/or kV according to patient size and/or use of iterati ve reconstruction technique. FINDINGS: Irregular enhancing soft tissue thickening predominantly along the left aspect of the hypo pharynx, at the level of the cricoid and thyroid cartilages, extending for approximately 4.5 cm in le ngth, resulting in prominent narrowing of the airway (axial series 701 image 55), to as low as 0.4 cm . No obvious fluid collections. No obvious lymphadenopathy. Thin epiglottis. Please see the separate dictation for evaluation of the lungs. No concerning osseous abnormality is identified. IMPRESSION: Irregular enhancing soft tissue thickening in the hypopharynx, at the level of the crico id and thyroid cartilages, likely corresponding with the known malignant lesions, resulting in promin ent narrowing of the airway. Electronically signed by: Kathleen Leal MD 07/24/2021 11:32 PM SENIOR ADMINISTRATIVE SUPPORT Due to temporary technical issues with the PACS/Fluency reporting system, reports are being signed by the in house radiologist without review as a courtesy to ensure prompt reporting. The interpreting r adiologist is fully responsible for the content of the report.
--- NOTE | 2021-07-25 11:43 | RAD REPORT ---
EXAM DESCRIPTION: CT Angiography Chest With Intravenous Contrast CLINICAL HISTORY: DYSPNEA TECHNIQUE: Axial computed tomographic angiography images of the chest with intravenous contrast. S agittal and coronal reformatted images were created and reviewed. This CT exam was performed using one or more of the following dose reduction techniques: automated exposure control, adjustment of t he mA and/or kV according to patient size, and/or use of iterative reconstruction technique. MIP reconstructed images were created and reviewed. COMPARISON: No relevant prior studies available. FINDINGS: Artifacts: Motion artifact degrades image quality and limits evaluation of segmental and subsegmental vessels. Pulmonary arteries: No central or proximal segmental pulmonary arterial filling defects. Aorta: The ascending aorta measures 4 cm in maximum diameter. No thoracic aortic dissection. Lungs: Mild paraseptal and centrilobular emphysema with an upper lobe predominance. Minimal right a pical pleural parenchymal scar. Left lower lobe consolidative changes. Right middle and lower lobe an d lingular pleural parenchymal scar. Pleural space: Unremarkable. No significant effusion. No pneumothorax. Heart: Unremarkable. No cardiomegaly. No significant pericardial effusion. No evidence of RV dysfunction. Bones/joints: Minimal multilevel spondylosis. No acute fracture. No dislocation. Soft tissues: Unremarkable. Lymph nodes: Unremarkable. No enlarged lymph nodes. Liver: Subcentimeter left hepatic hypodensity which is too small to characterize. No follow-up imag ing is needed. IMPRESSION: 1. Motion artifact degrades image quality and limits evaluation of segmental and subse gmental vessels. No central or proximal segmental pulmonary embolic disease. 2. Left lower lobe infiltrate. 3. Other findings as above. Electronically signed by: Blaine Banerjee MD 07/24/2021 11:20 PM [facility] Due to temporary technical issues with the PACS/Fluency reporting system, reports are being signed by the in house radiologist without review as a courtesy to ensure prompt reporting. The interpreting r adiologist is fully responsible for the content of the report.
== END 2021-07-25 02:29 | disposition short-term general hospital (02) ==
LOC: ER 20:52
DX: J44.0 Chronic obstructive pulmonary disease with (acute) lower respiratory infection (principal); J18.9 Pneumonia, unspecified organism; J44.1 Chronic obstructive pulmonary disease with (acute) exacerbation; C13.9 Malignant neoplasm of hypopharynx, unspecified; J39.8 Other specified diseases of upper respiratory tract; F31.9 Bipolar disorder, unspecified; I10 Essential (primary) hypertension; F17.210 Nicotine dependence, cigarettes, uncomplicated; Z20.822 Contact with and (suspected) exposure to COVID-19
CPT/HCPCS: 96365; 93005; 87040 ×2; 85025; 80048; 36415; 83735; 82550; 85610; 82565; 80076; 85730; 84443; 84484; 84439; 83690; 83880; 80307; 70491; 71275; 71045; 94660; 96375; 99285; 96366; U0003; Q9967; J2543; J1100